=== PATIENT | female | born 1945 | race Caucasian/White ===

== ENCOUNTER 2017-01-20 01:01 | Emergency (ER) | payer OTHER ==
[~2017-01-20] VITALS: Ht 157.5 cm; Wt 63.5 kg
[~2017-01-20 01:01] MED LIST: CEPH-37 PO; COMIH INH; DIP25C PO; FENO134C PO; FENT75DI2 TD; FURO20TA PO; HYDR-3995 PO; POTA10SO11 PO; TIOTCAP INH
[2017-01-20 01:57] LABS: Basophils # (auto) 0.1 uL; Basophils % (auto) 0.5 % (0.0-2.0); CONDITION Y; Eosinophils # (auto) 0.1 uL; Eosinophils % (auto) 0.8 % (0.0-7.0); Hematocrit 38.5 % (36.0-46.0); Hemoglobin 12.7 g/dL (12.2-16.2); Lymphocytes % (auto) 14.1 % (10.0-50.0); Mean Corpuscular Hemoglobin 28.8 pg (28.0-32.0); Mean Corpuscular Hgb Conc. 32.9 g/dL (32.0-36.0); Mean Corpuscular Volume 87.4 fL (80.0-100.0); Mean Platelet Volume 8.2 fL (7.4-10.4); Monocytes # (auto) 0.4 uL; Monocytes % (auto) 2.9 % (0.0-12.0); Neutrophils # (auto) 11.7 uL; Neutrophils % (auto) 81.7 % (37.0-80.0); Platelet Count (auto) 353 10^3/uL (140-450); Red Cell Distribution Width 14.8 % (11.6-16.0); White Blood Cell 14.3 10^3/uL (4.4-10.8)
[2017-01-20 02:18] LABS: Albumin 3.3 g/dL (3.4-5.0); BUN/Creatinine Ratio 12.5; Calcium 8.4 mg/dL (8.5-10.1); Potassium 3.4 mmol/L (3.5-5.1)
[2017-01-20 02:21] LABS: Bilirubin, Total 0.4 mg/dL (0.2-1.0); Total Protein 7.1 g/dL (6.4-8.2)
[2017-01-20 03:21] LABS: Temperature: 21.6 C (20.0-25.0)
[2017-01-20] MEDS ORDERED: cefTRIAXone W LIDOCAINE 1 GM IM IM ONE (08:30)
[2017-01-20 10:43] VITALS: BP 108/50
== END 2017-01-20 11:22 | disposition home or self-care (01) ==
LOC: ER 01:01
DX: L98.419 Non-pressure chronic ulcer of buttock with unspecified severity (principal); Z48.01 Encounter for change or removal of surgical wound dressing; I12.9 Hypertensive chronic kidney disease with stage 1 through stage 4 chronic kidney disease, or unspecified chronic kidney disease; N18.9 Chronic kidney disease, unspecified; E03.9 Hypothyroidism, unspecified; Z88.6 Allergy status to analgesic agent; Z88.8 Allergy status to other drugs, medicaments and biological substances
CPT/HCPCS: 36415; 80053; 83605; 83880; 85025; 87040; 96372; 99284; J0696

== ENCOUNTER 2017-12-09 08:51 | Inpatient (IN) | payer OTHER ==
[~2017-12-09] VITALS: Ht 162.6 cm; Wt 67.4 kg
[2017-12-09] MEDS ORDERED: SODIUM CHLORIDE 0.9% 1,000 ML IV ONE ×2 (08:57→13:15)
[2017-12-09 09:39] LABS: Urine Bacteria NONE SEEN /hpf (None Seen); Urine Blood 2+ /uL (Negative); Urine Mucus FEW (None Seen); Urine Specific Gravity 1.016 (1.001-1.035); Urine WBC 1198 /hpf (0 - 5); Urine WBC Clumps PRESENT /hpf (None Seen)
[2017-12-09 09:54] LABS: Basophils # (auto) 0 uL; Basophils % (auto) 0.2 % (0.0-2.0); Eosinophils # (auto) 0 uL; Hematocrit 33.4 % (36.0-46.0); Hemoglobin 10.7 g/dL (12.2-16.2); Lymphocytes # (auto) 0.7 uL; Lymphocytes % (auto) 3.2 % (10.0-50.0); Mean Corpuscular Hemoglobin 28.9 pg (28.0-32.0); Mean Corpuscular Hgb Conc. 32.2 g/dL (32.0-36.0); Mean Corpuscular Volume 89.9 fL (80.0-100.0); Monocytes # (auto) 0.9 uL; Neutrophils # (auto) 20.6 uL; Neutrophils % (auto) 92.6 % (37.0-80.0); Platelet Count (auto) 292 10^3/uL (140-450); Red Blood Cells 3.72 10^6/uL (4.0-5.20); Red Cell Distribution Width 13.7 % (11.8-14.3); White Blood Cell 22.3 10^3/uL (4.4-10.8)
[2017-12-09 10:19] LABS: Lactic Acid w/Reflex 4.6 mmol/L (0.4-2.0)
[2017-12-09 10:30] LABS: Albumin 2.3 g/dL (3.4-5.0); BUN/Creatinine Ratio 8.3; Bilirubin, Total 0.6 mg/dL (0.2-1.0); Calcium 8.2 mg/dL (8.5-10.1); Total Protein 5.9 g/dL (6.4-8.2)
[2017-12-09] MEDS ORDERED: VANCOMYCIN 1GM/250ML 250 ML IV ONE (11:00)
[2017-12-09] MEDS ORDERED: cefTRIAXone 1GM/10ml IVPUSH 10 ML IV ONE (11:00)
[2017-12-09] MEDS ORDERED: ONDANSETRON HCL 4 MG/2 ML VIAL ONE (12:59)
[2017-12-09] MEDS ORDERED: methylPREDNISolone SOD SUCC 125 MG/2 ML VL IM ONE (13:15)
[2017-12-09] MEDS ORDERED: VANCOMYCIN PER PHARMACY 0 MG IV SCH (13:15)
[2017-12-09] MEDS ORDERED: LEVOTHYROXINE SODIUM 25 MCG TAB PO ONE (13:15)
[2017-12-09] MEDS ORDERED: NITROGLYCERIN 0.4 MG SL TAB SL PRN (13:30)
[2017-12-09] MEDS ORDERED: TEMAZEPAM 15 MG CAP PO PRN (13:30)
[2017-12-09] MEDS ORDERED: POTASSIUM CHL 10 Meq TABLET PO ONE (13:30)
[2017-12-09] MEDS ORDERED: LORazepam 2MG/ML-1ML VIAL ONE (13:53)
[2017-12-09] MEDS ORDERED: ONDANSETRON HCL 4 MG/2 ML VIAL IV ONE (14:30)
[2017-12-09] MEDS ORDERED: LORazepam 2MG/ML-1ML VIAL IV ONE (14:30)
[2017-12-09] MEDS: SODIUM CHLORIDE 0.9% 1,000 ML IV SCH ×2 (15:56→21:56)
[2017-12-09] MEDS: fentaNYL 100MCG/HR 100 MCG/HR PAT TD SCH (15:58)
[2017-12-09 16:01] LABS: Lactic Acid w/Reflex 2.5 mmol/L (0.4-2.0)
[2017-12-09] MEDS ORDERED: NOREPINEPHRINE 8 MG/250ML KIT 250 ML IV ONE (16:46)
[2017-12-09] MEDS: NOREPINEPHRINE 8 MG/250ML KIT 250 ML IV SCH (17:00)
[2017-12-09] MEDS: methylPREDNISolone SOD SUCC 40 MG/ML VL IV SCH (18:59)
[2017-12-09] MEDS: BOOST PLUS 8 ounce PO SCH (19:40)
[2017-12-09] MEDS: ONDANSETRON HCL 4 MG/2 ML VIAL IV PRN (19:56)
[2017-12-09 21:34] LABS: BUN/Creatinine Ratio 9.3; Calcium 7.3 mg/dL (8.5-10.1); Potassium 3.1 mmol/L (3.5-5.1)
[2017-12-09] MEDS: FAMOTIDINE 20 MG TAB PO SCH (22:04)
[2017-12-09] MEDS: ASCORBIC ACID 500 MG TAB PO SCH (22:04)
[2017-12-10] MEDS: ONDANSETRON HCL 4 MG/2 ML VIAL IV PRN (01:07)
[2017-12-10] MEDS: methylPREDNISolone SOD SUCC 40 MG/ML VL IV SCH ×2 (01:07→07:38)
[2017-12-10] MEDS ORDERED: TEMAZEPAM 15 MG CAP ONE (01:18)
[2017-12-10] MEDS: NOREPINEPHRINE 8 MG/250ML KIT 250 ML IV SCH ×3 (02:45→03:51)
[2017-12-10] MEDS ORDERED: ALBUMIN 5% 250 ML IV ONE (05:45)
[2017-12-10] MEDS: SODIUM CHLORIDE 0.9% 1,000 ML IV SCH ×3 (06:18→22:26)
[2017-12-10 06:50] LABS: Hematocrit 29.9 % (36.0-46.0); Hemoglobin 9.7 g/dL (12.2-16.2); Mean Corpuscular Hgb Conc. 32.5 g/dL (32.0-36.0); Red Cell Distribution Width 14.2 % (11.8-14.3)
[2017-12-10 06:52] LABS: Mean Corpuscular Hemoglobin 29.1 pg (28.0-32.0); Mean Corpuscular Volume 89.5 fL (80.0-100.0); Platelet Count (auto) 270 10^3/uL (140-450); Red Blood Cells 3.34 10^6/uL (4.0-5.20)
[2017-12-10 07:05] LABS: Albumin 1.9 g/dL (3.4-5.0); Calcium 7.2 mg/dL (8.5-10.1)
[2017-12-10 07:12] LABS: White Blood Cell 40.6 10^3/uL (4.4-10.8)
[2017-12-10 07:13] LABS: Band Neutrophils % (manual) 0; Basophils % (manual) 0 (0.0-2.0); Blast Cells 0; Eosinophils % (manual) 0 (0-7); Metamyelocytes % 0; Myelocytes % 0; Promyelocytes % 0; Reactive Lymphocytes 0
[2017-12-10 07:22] LABS: Bilirubin, Total 0.4 mg/dL (0.2-1.0); Total Protein 5.3 g/dL (6.4-8.2)
[2017-12-10] MEDS: LEVOTHYROXINE SODIUM 25 MCG TAB PO SCH (07:45)
[2017-12-10] MEDS: BOOST PLUS 8 ounce PO SCH ×3 (08:11→18:36)
[2017-12-10 08:15] LABS: Lymphocytes % (manual) 2 (10.0-50.0); Monocytes % (manual) 3 (0-12)
[2017-12-10] MEDS ORDERED: cefTRIAXone 1GM/10ml IVPUSH 10 ML IV SCH (09:00)
[2017-12-10] MEDS ORDERED: ZINC SULFATE 220 MG CAP PO SCH (10:00)
[2017-12-10] MEDS: ASCORBIC ACID 500 MG TAB PO SCH ×2 (10:44→22:00)
[2017-12-10] MEDS: CHOLECALCIFEROL (VITD3) 1,000 UNIT TAB PO SCH (10:44)
[2017-12-10] MEDS: FAMOTIDINE 20 MG TAB PO SCH (10:44)
[2017-12-10] MEDS: MULTIPLE VITAMIN TAB PO SCH (10:44)
[2017-12-10] MEDS: HYDROcodone-ACET 10/325MG TAB PO PRN (10:45)
[2017-12-10] MEDS ORDERED: VANCOMYCIN 1GM/250ML 250 ML IV SCH (12:00)
[2017-12-10] MEDS ORDERED: fentaNYL 100MCG/HR 100 MCG/HR PAT TD SCH (12:00)
[2017-12-10] MEDS: PIPERACILLIN-TAZOB 3.375GM 100 ML IV SCH ×2 (12:21→18:36)
[2017-12-10] MEDS ORDERED: POTASSIUM CHL 20MEQ/100ML 100 ML IV ONE (12:30)
[2017-12-10 19:31] LABS: INR 1.35 (0.9-1.15); Prothrombin Time 14.2 sec (9.27-12.13)
[2017-12-10 19:32] LABS: Hematocrit 26.8 % (36.0-46.0); Hemoglobin 8.6 g/dL (12.2-16.2); Mean Corpuscular Hemoglobin 29.2 pg (28.0-32.0); Mean Corpuscular Hgb Conc. 32.1 g/dL (32.0-36.0); Mean Corpuscular Volume 90.8 fL (80.0-100.0); Platelet Count (auto) 194 10^3/uL (140-450); Red Blood Cells 2.95 10^6/uL (4.0-5.20); Red Cell Distribution Width 14.7 % (11.8-14.3); White Blood Cell 20.4 10^3/uL (4.4-10.8)
[2017-12-10 19:38] LABS: Albumin 1.9 g/dL (3.4-5.0); BUN/Creatinine Ratio 19.1; Bilirubin, Direct 0.2 mg/dL (0-0.2); Bilirubin, Total 0.2 mg/dL (0.2-1.0); Calcium 6.9 mg/dL (8.5-10.1); Magnesium 1.7 mg/dL (1.6-2.6); Potassium 3.4 mmol/L (3.5-5.1); Total Protein 4.9 g/dL (6.4-8.2)
[2017-12-10 19:52] LABS: Basophils % (manual) 0 (0.0-2.0); Blast Cells 0; Eosinophils % (manual) 0 (0-7); Metamyelocytes % 0; Myelocytes % 0; Promyelocytes % 0; Reactive Lymphocytes 0
[2017-12-10 21:13] LABS: Band Neutrophils % (manual) 6; Lymphocytes % (manual) 2 (10.0-50.0); Monocytes % (manual) 2 (0-12)
[2017-12-10] MEDS: PANTOPRAZOLE 40 MG/10 ML VIAL IV SCH (22:00)
[2017-12-11] VITALS (13 sets, daily range): BP systolic 101–135; BP diastolic 39–74
[2017-12-11] MEDS: PIPERACILLIN-TAZOB 3.375GM 100 ML IV SCH ×2 (00:10→05:51)
[2017-12-11] MEDS: HYDROcodone-ACET 10/325MG TAB PO PRN ×2 (04:34→23:32)
[2017-12-11] MEDS: ACETAMINOPHEN 325 MG TAB PO PRN ×2 (04:53→20:30)
[2017-12-11] MEDS: ONDANSETRON HCL 4 MG/2 ML VIAL IV PRN ×2 (04:59→20:30)
[2017-12-11 05:27] LABS: Basophils # (auto) 0 uL; Basophils % (auto) 0.1 % (0.0-2.0); Eosinophils # (auto) 0.3 uL; Hematocrit 27.9 % (36.0-46.0); Hemoglobin 9.3 g/dL (12.2-16.2); Lymphocytes # (auto) 0.4 uL; Lymphocytes % (auto) 2.3 % (10.0-50.0); Mean Corpuscular Hemoglobin 29.9 pg (28.0-32.0); Mean Corpuscular Hgb Conc. 33.3 g/dL (32.0-36.0); Mean Corpuscular Volume 89.8 fL (80.0-100.0); Monocytes # (auto) 0.3 uL; Monocytes % (auto) 1.8 % (0.0-12.0); Neutrophils # (auto) 15.7 uL; Neutrophils % (auto) 93.8 % (37.0-80.0); Platelet Count (auto) 173 10^3/uL (140-450); Red Blood Cells 3.11 10^6/uL (4.0-5.20); Red Cell Distribution Width 14.4 % (11.8-14.3); White Blood Cell 16.7 10^3/uL (4.4-10.8)
[2017-12-11 05:42] LABS: INR 1.24 (0.9-1.15); Partial Thromboplastin Time 36.3 sec (23.78-33.04); Prothrombin Time 13.1 sec (9.27-12.13)
[2017-12-11 05:51] LABS: Albumin 1.9 g/dL (3.4-5.0); BUN/Creatinine Ratio 19.8; Bilirubin, Direct 0.2 mg/dL (0-0.2); Bilirubin, Total 0.3 mg/dL (0.2-1.0); Calcium 7.2 mg/dL (8.5-10.1); Magnesium 1.8 mg/dL (1.6-2.6); Total Protein 5.2 g/dL (6.4-8.2)
[2017-12-11] MEDS: SODIUM CHLORIDE 0.9% 1,000 ML IV SCH ×3 (05:52→20:30)
[2017-12-11] MEDS: POTASSIUM CHL 20MEQ/100ML 100 ML IV SCH ×2 (06:44→08:32)
[2017-12-11] MEDS: LEVOTHYROXINE SODIUM 25 MCG TAB PO SCH (06:45)
[2017-12-11] MEDS: BOOST PLUS 8 ounce PO SCH ×3 (07:25→18:49)
[2017-12-11] MEDS: PANTOPRAZOLE 40 MG/10 ML VIAL IV SCH ×2 (10:53→22:04)
[2017-12-11] MEDS: MULTIPLE VITAMIN TAB PO SCH (10:56)
[2017-12-11] MEDS: ASCORBIC ACID 500 MG TAB PO SCH ×2 (10:56→22:04)
[2017-12-11] MEDS: CHOLECALCIFEROL (VITD3) 1,000 UNIT TAB PO SCH (10:57)
[2017-12-11] MEDS ORDERED: cefTRIAXone 1GM/10ml IVPUSH 10 ML IV ONE (11:00)
[2017-12-11] MEDS ORDERED: SODIUM CHLORIDE 0.9% 1,000 ML IV ONE (11:00)
[2017-12-11] MEDS: NOREPINEPHRINE 8 MG/250ML KIT 250 ML IV SCH (11:59)
[2017-12-11] MEDS: PHENYLEPHRINE INJ 20 MG in D5W 5% 250 ML IV SCH (19:30)
[2017-12-11] MEDS ORDERED: MAGNESIUM SULFATE 1GM/100ML 100 ML IV ONE (20:15)
[2017-12-11 21:59] LABS: Basophils # (auto) 0 uL; Basophils % (auto) 0.6 % (0.0-2.0); Eosinophils # (auto) 0 uL; Eosinophils % (auto) 0.5 % (0.0-7.0); Hematocrit 26.1 % (36.0-46.0); Hemoglobin 8.6 g/dL (12.2-16.2); Lymphocytes # (auto) 0.2 uL; Lymphocytes % (auto) 3.4 % (10.0-50.0); Mean Corpuscular Hgb Conc. 33.1 g/dL (32.0-36.0); Mean Corpuscular Volume 90.8 fL (80.0-100.0); Monocytes # (auto) 0.3 uL; Monocytes % (auto) 4.1 % (0.0-12.0); Neutrophils # (auto) 6.2 uL; Neutrophils % (auto) 91.4 % (37.0-80.0); Nucleated Red Blood Cells % 0.1 %; Platelet Count (auto) 129 10^3/uL (140-450); Red Blood Cells 2.88 10^6/uL (4.0-5.20); White Blood Cell 6.8 10^3/uL (4.4-10.8)
[2017-12-11 22:19] LABS: Calcium 7.2 mg/dL (8.5-10.1); Potassium 3.3 mmol/L (3.5-5.1)
[2017-12-11 22:29] LABS: Free T3 1.72 pg/mL (2.3-4.2)
[2017-12-12] VITALS (71 sets, daily range): BP systolic 84–144; BP diastolic 38–92
[2017-12-12] MEDS: SODIUM CHLORIDE 0.9% 1,000 ML IV SCH ×2 (02:30→21:49)
[2017-12-12] MEDS: PHENYLEPHRINE INJ 20 MG in D5W 5% 250 ML IV SCH ×3 (03:05→19:45)
[2017-12-12 03:48] LABS: Basophils # (auto) 0 uL; Basophils % (auto) 0.2 % (0.0-2.0); Eosinophils # (auto) 0.1 uL; Eosinophils % (auto) 0.8 % (0.0-7.0); Hematocrit 27.5 % (36.0-46.0); Hemoglobin 9.1 g/dL (12.2-16.2); Lymphocytes # (auto) 0.5 uL; Lymphocytes % (auto) 5.4 % (10.0-50.0); Mean Corpuscular Hemoglobin 29.8 pg (28.0-32.0); Mean Corpuscular Hgb Conc. 32.9 g/dL (32.0-36.0); Mean Corpuscular Volume 90.5 fL (80.0-100.0); Monocytes # (auto) 0.5 uL; Monocytes % (auto) 4.6 % (0.0-12.0); Neutrophils # (auto) 8.8 uL; Platelet Count (auto) 163 10^3/uL (140-450); Red Blood Cells 3.04 10^6/uL (4.0-5.20); Red Cell Distribution Width 14.7 % (11.8-14.3); White Blood Cell 9.9 10^3/uL (4.4-10.8)
[2017-12-12 04:05] LABS: INR 1.09 (0.9-1.15); Partial Thromboplastin Time 31.3 sec (23.78-33.04); Prothrombin Time 11.6 sec (9.27-12.13)
[2017-12-12 04:46] LABS: Albumin 1.7 g/dL (3.4-5.0); BUN/Creatinine Ratio 12.3; Calcium 7.1 mg/dL (8.5-10.1); Magnesium 1.9 mg/dL (1.6-2.6); Potassium 3.4 mmol/L (3.5-5.1)
[2017-12-12 04:49] LABS: Bilirubin, Total 0.5 mg/dL (0.2-1.0); Total Protein 4.9 g/dL (6.4-8.2)
[2017-12-12 06:28] LABS: Bilirubin, Direct 0.2 mg/dL (0-0.2)
[2017-12-12] MEDS: LEVOTHYROXINE SODIUM 25 MCG TAB PO SCH (06:36)
[2017-12-12] MEDS: DOCUSATE SOD 100 MG CAP PO PRN (06:37)
[2017-12-12] MEDS: ONDANSETRON HCL 4 MG/2 ML VIAL IV PRN ×3 (06:37→23:33)
[2017-12-12] MEDS: BOOST PLUS 8 ounce PO SCH ×3 (08:00→18:00)
[2017-12-12] MEDS ORDERED: LIDOCAINE 2%HCL (LOCAL ANESTH.) INJ 20ML MDV ONE ×2 (08:21→15:19)
[2017-12-12] MEDS ORDERED: IODIXANOL 320MG/ML 100ML BTL IV ONE (08:21)
[2017-12-12] MEDS: cefTRIAXone 1GM/10ml IVPUSH 10 ML IV SCH (09:18)
[2017-12-12] MEDS: MULTIPLE VITAMIN TAB PO SCH (10:00)
[2017-12-12] MEDS: ASCORBIC ACID 500 MG TAB PO SCH ×2 (10:00→21:51)
[2017-12-12] MEDS: CHOLECALCIFEROL (VITD3) 1,000 UNIT TAB PO SCH (10:00)
[2017-12-12] MEDS: PANTOPRAZOLE 40 MG/10 ML VIAL IV SCH ×2 (10:45→21:51)
[2017-12-12] MEDS ORDERED: MIDAZOLAM HCL 1MG/1ML-2 ML VIAL ONE (15:01)
[2017-12-12] MEDS ORDERED: fentaNYL CITRATE 100 MCG/2 ML VL ONE (15:01)
[2017-12-12] MEDS ORDERED: IOHEXOL 300 MG/ML 100ML BOTTLE IJ ONE (15:19)
[2017-12-12] MEDS ORDERED: GELATIN 1 SPONGE SIZE 50 TOP ONE (15:55)
[2017-12-12] MEDS: fentaNYL 100MCG/HR 100 MCG/HR PAT TD SCH (18:00)
[2017-12-12] MEDS ORDERED: POTASSIUM CHL 20MEQ/100ML 100 ML IV ONE (18:15)
[2017-12-12] MEDS: HYDROcodone-ACET 10/325MG TAB PO PRN (19:57)
[2017-12-13] VITALS (29 sets, daily range): BP systolic 103–153; BP diastolic 50–98
[2017-12-13] MEDS: SODIUM CHLORIDE 0.9% 1,000 ML IV SCH ×4 (02:15→21:51)
[2017-12-13 06:34] LABS: Basophils # (auto) 0 uL; Basophils % (auto) 0.1 % (0.0-2.0); Eosinophils # (auto) 0 uL; Eosinophils % (auto) 0.3 % (0.0-7.0); Hematocrit 27.9 % (36.0-46.0); Hemoglobin 9.2 g/dL (12.2-16.2); Lymphocytes # (auto) 0.4 uL; Lymphocytes % (auto) 5.3 % (10.0-50.0); Mean Corpuscular Hemoglobin 29.9 pg (28.0-32.0); Mean Corpuscular Volume 90.4 fL (80.0-100.0); Monocytes # (auto) 0.5 uL; Monocytes % (auto) 6.2 % (0.0-12.0); Neutrophils # (auto) 6.5 uL; Neutrophils % (auto) 88.1 % (37.0-80.0); Platelet Count (auto) 125 10^3/uL (140-450); Red Blood Cells 3.08 10^6/uL (4.0-5.20); Red Cell Distribution Width 15.1 % (11.8-14.3); White Blood Cell 7.4 10^3/uL (4.4-10.8)
[2017-12-13] MEDS: LEVOTHYROXINE SODIUM 25 MCG TAB PO SCH (06:45)
[2017-12-13 06:49] LABS: BUN/Creatinine Ratio 10.9; Calcium 7.3 mg/dL (8.5-10.1); Potassium 3.7 mmol/L (3.5-5.1)
[2017-12-13] MEDS: BOOST PLUS 8 ounce PO SCH ×3 (08:00→18:21)
[2017-12-13] MEDS: MULTIPLE VITAMIN TAB PO SCH (09:42)
[2017-12-13] MEDS: PANTOPRAZOLE 40 MG/10 ML VIAL IV SCH ×2 (09:42→21:50)
[2017-12-13] MEDS: cefTRIAXone 1GM/10ml IVPUSH 10 ML IV SCH (09:42)
[2017-12-13] MEDS: CHOLECALCIFEROL (VITD3) 1,000 UNIT TAB PO SCH (09:43)
[2017-12-13] MEDS: ASCORBIC ACID 500 MG TAB PO SCH ×2 (09:43→21:50)
[2017-12-13] MEDS: HYDROcodone-ACET 10/325MG TAB PO PRN ×2 (09:51→17:41)
[2017-12-13] MEDS ORDERED: BACL10TA PO (16:10)
[2017-12-13] MEDS ORDERED: FURO20TA3 PO (16:10)
[2017-12-13] MEDS ORDERED: PRE1T PO (16:10)
[2017-12-13] MEDS ORDERED: IBUP800T24 PO (16:10)
[2017-12-13] MEDS ORDERED: CHOL1CAP PO (16:10)
[2017-12-13] MEDS ORDERED: POTA10TA75 PO (16:10)
[2017-12-13] MEDS ORDERED: LEVO25TA6 PO (16:10)
[2017-12-13] MEDS ORDERED: CRAN125T PO (16:10)
[2017-12-13] MEDS ORDERED: DOCU-94 PO (16:10)
[2017-12-13] MEDS ORDERED: OXYM0.0511 NAS (16:10)
[2017-12-13] MEDS ORDERED: VITA400T4 PO (16:10)
[2017-12-13] MEDS ORDERED: GLUC-163 PO (16:10)
[2017-12-13] MEDS: DOCUSATE SOD 100 MG CAP PO PRN (21:50)
[2017-12-14 05:00] VITALS: BP 133/68
[2017-12-14] MEDS: LEVOTHYROXINE SODIUM 25 MCG TAB PO SCH (06:33)
[2017-12-14 06:43] LABS: Basophils # (auto) 0 uL; Basophils % (auto) 0.3 % (0.0-2.0); Eosinophils # (auto) 0.2 uL; Eosinophils % (auto) 2.6 % (0.0-7.0); Hematocrit 26.8 % (36.0-46.0); Hemoglobin 9.1 g/dL (12.2-16.2); Lymphocytes # (auto) 0.7 uL; Lymphocytes % (auto) 9.7 % (10.0-50.0); Mean Corpuscular Hemoglobin 30.3 pg (28.0-32.0); Mean Corpuscular Hgb Conc. 34.1 g/dL (32.0-36.0); Mean Corpuscular Volume 88.9 fL (80.0-100.0); Monocytes # (auto) 0.6 uL; Monocytes % (auto) 8.4 % (0.0-12.0); Neutrophils # (auto) 5.8 uL; Platelet Count (auto) 162 10^3/uL (140-450); Red Blood Cells 3.02 10^6/uL (4.0-5.20); Red Cell Distribution Width 15.2 % (11.8-14.3); White Blood Cell 7.4 10^3/uL (4.4-10.8)
[2017-12-14 07:00] LABS: BUN/Creatinine Ratio 10.7; Calcium 7.6 mg/dL (8.5-10.1); Potassium 3.1 mmol/L (3.5-5.1)
[2017-12-14 08:00] VITALS: BP 141/69
[2017-12-14] MEDS: BOOST PLUS 8 ounce PO SCH ×3 (08:00→18:34)
[2017-12-14] MEDS: SODIUM CHLORIDE 0.9% 1,000 ML IV SCH ×2 (10:01→18:15)
[2017-12-14] MEDS: cefTRIAXone 1GM/10ml IVPUSH 10 ML IV SCH (10:02)
[2017-12-14] MEDS: ASCORBIC ACID 500 MG TAB PO SCH ×2 (10:02→21:40)
[2017-12-14] MEDS: PANTOPRAZOLE 40 MG/10 ML VIAL IV SCH ×2 (10:02→21:40)
[2017-12-14] MEDS: CHOLECALCIFEROL (VITD3) 1,000 UNIT TAB PO SCH (10:02)
[2017-12-14] MEDS: MULTIPLE VITAMIN TAB PO SCH (10:02)
[2017-12-14] MEDS: HYDROcodone-ACET 10/325MG TAB PO PRN ×2 (10:40→18:34)
[2017-12-14 13:00] VITALS: BP 124/70
[2017-12-14] MEDS ORDERED: POTASSIUM CHL 20 Meq TABLET PO ONE (13:15)
[2017-12-14 17:10] VITALS: BP 125/69
[2017-12-14] MEDS: DOCUSATE SOD 100 MG CAP PO PRN (21:40)
[2017-12-14 22:00] VITALS: BP 121/81
[2017-12-15 05:00] VITALS: BP 156/76
[2017-12-15] MEDS: HYDROcodone-ACET 10/325MG TAB PO PRN ×3 (05:00→17:26)
[2017-12-15] MEDS: SODIUM CHLORIDE 0.9% 1,000 ML IV SCH ×2 (06:00→14:15)
[2017-12-15] MEDS: LEVOTHYROXINE SODIUM 25 MCG TAB PO SCH (06:00)
[2017-12-15 06:03] LABS: Basophils # (auto) 0 uL; Basophils % (auto) 0.8 % (0.0-2.0); Eosinophils # (auto) 0.2 uL; Eosinophils % (auto) 3.5 % (0.0-7.0); Hemoglobin 9.3 g/dL (12.2-16.2); Lymphocytes # (auto) 0.9 uL; Mean Corpuscular Hemoglobin 29.3 pg (28.0-32.0); Mean Corpuscular Hgb Conc. 33.1 g/dL (32.0-36.0); Mean Corpuscular Volume 88.5 fL (80.0-100.0); Monocytes # (auto) 0.6 uL; Monocytes % (auto) 10.1 % (0.0-12.0); Neutrophils # (auto) 4.1 uL; Neutrophils % (auto) 69.6 % (37.0-80.0); Nucleated Red Blood Cells % 0.1 %; Platelet Count (auto) 224 10^3/uL (140-450); Red Blood Cells 3.17 10^6/uL (4.0-5.20); Red Cell Distribution Width 14.8 % (11.8-14.3); White Blood Cell 5.9 10^3/uL (4.4-10.8)
[2017-12-15 06:09] LABS: BUN/Creatinine Ratio 7.7; Calcium 7.7 mg/dL (8.5-10.1); Magnesium 1.5 mg/dL (1.6-2.6); Potassium 3.2 mmol/L (3.5-5.1)
[2017-12-15 08:00] VITALS: BP 130/68
[2017-12-15] MEDS: BOOST PLUS 8 ounce PO SCH ×3 (08:00→18:00)
[2017-12-15] MEDS: ENOXAPARIN SOD 40 MG/0.4 ML SYRINGE SC SCH (11:28)
[2017-12-15] MEDS: CHOLECALCIFEROL (VITD3) 1,000 UNIT TAB PO SCH (11:28)
[2017-12-15] MEDS: ASCORBIC ACID 500 MG TAB PO SCH ×2 (11:28→22:41)
[2017-12-15] MEDS: PANTOPRAZOLE 40 MG/10 ML VIAL IV SCH ×2 (11:28→22:41)
[2017-12-15] MEDS: fentaNYL 100MCG/HR 100 MCG/HR PAT TD SCH (11:28)
[2017-12-15] MEDS: MULTIPLE VITAMIN TAB PO SCH (11:28)
[2017-12-15] MEDS: cefTRIAXone 1GM/10ml IVPUSH 10 ML IV SCH (11:29)
[2017-12-15] MEDS ORDERED: MAGNESIUM OXIDE 400 MG TAB PO ONE (11:45)
[2017-12-15] MEDS ORDERED: POTASSIUM CHL 20 Meq TABLET PO ONE (11:45)
[2017-12-15] MEDS: MAGNESIUM SULFATE 1GM/100ML 100 ML IV SCH ×3 (12:06→20:08)
[2017-12-15 12:55] VITALS: BP 150/78
[2017-12-15] MEDS ORDERED: LEVOFLOXACIN 500 MG TAB PO ONE (14:15)
[2017-12-15 17:00] VITALS: BP 140/80
[2017-12-15] MEDS ORDERED: MAGNESIUM SULFATE 1GM/100ML 100 ML IV ONE (20:03)
[2017-12-15 22:00] VITALS: BP 139/93
[2017-12-16] MEDS: HYDROcodone-ACET 10/325MG TAB PO PRN ×2 (00:20→12:58)
[2017-12-16] MEDS: SODIUM CHLORIDE 0.9% 1,000 ML IV SCH (00:48)
[2017-12-16 01:04] LABS: Urine Bacteria NONE SEEN /hpf (None Seen); Urine Blood 3+ /uL (Negative); Urine Specific Gravity 1.004 (1.001-1.035); Urine WBC 4 /hpf (0 - 5)
[2017-12-16 05:00] VITALS: BP 150/67
[2017-12-16] MEDS: LEVOTHYROXINE SODIUM 25 MCG TAB PO SCH (06:53)
[2017-12-16 08:00] VITALS: BP 146/65
[2017-12-16] MEDS: BOOST PLUS 8 ounce PO SCH ×2 (08:00→12:00)
[2017-12-16 08:20] LABS: Basophils # (auto) 0 uL; Basophils % (auto) 0.6 % (0.0-2.0); Eosinophils # (auto) 0.3 uL; Eosinophils % (auto) 4.7 % (0.0-7.0); Hematocrit 27.8 % (36.0-46.0); Hemoglobin 9.1 g/dL (12.2-16.2); Lymphocytes % (auto) 15.9 % (10.0-50.0); Mean Corpuscular Hemoglobin 28.7 pg (28.0-32.0); Mean Corpuscular Hgb Conc. 32.9 g/dL (32.0-36.0); Mean Corpuscular Volume 87.3 fL (80.0-100.0); Monocytes # (auto) 0.5 uL; Monocytes % (auto) 8.7 % (0.0-12.0); Neutrophils # (auto) 4.3 uL; Neutrophils % (auto) 70.1 % (37.0-80.0); Platelet Count (auto) 276 10^3/uL (140-450); Red Blood Cells 3.18 10^6/uL (4.0-5.20); Red Cell Distribution Width 14.5 % (11.8-14.3); White Blood Cell 6.2 10^3/uL (4.4-10.8)
[2017-12-16 09:00] VITALS: BP 140/72
[2017-12-16] MEDS: cefTRIAXone 1GM/10ml IVPUSH 10 ML IV SCH (10:46)
[2017-12-16] MEDS: PANTOPRAZOLE 40 MG/10 ML VIAL IV SCH (10:46)
[2017-12-16] MEDS: ENOXAPARIN SOD 40 MG/0.4 ML SYRINGE SC SCH (10:46)
[2017-12-16] MEDS: ASCORBIC ACID 500 MG TAB PO SCH (10:47)
[2017-12-16] MEDS: CHOLECALCIFEROL (VITD3) 1,000 UNIT TAB PO SCH (10:47)
[2017-12-16] MEDS: MULTIPLE VITAMIN TAB PO SCH (10:47)
[2017-12-16 12:56] VITALS: BP 146/65
== END 2017-12-16 15:00 | disposition home health service (06) | DRG 871 ==
LOC: ER 08:51 → EDBD 08:51 → TELE 08:52 → ICU WEST 12-11 20:30 → DOU IN ICU 12-12 13:49 → TELE-WESTW 12-13 13:00
PROVIDERS: ADMIT Internal Medicine; ATTEND Internal Medicine
PROC: 02HV33Z Insertion of Infusion Device into Superior Vena Cava, Percutaneous Approach (ICD-10-PCS; principal; 2017-12-09)
PROC: 0T9130Z Drainage of Left Kidney with Drainage Device, Percutaneous Approach (ICD-10-PCS; 2017-12-12)
PROC: BT121ZZ Fluoroscopy of Left Kidney using Low Osmolar Contrast (ICD-10-PCS; 2017-12-12)
DX: A41.9 Sepsis, unspecified organism (principal); R65.21 Severe sepsis with septic shock; E44.0 Moderate protein-calorie malnutrition; N17.9 Acute kidney failure, unspecified; K92.0 Hematemesis; N13.6 Pyonephrosis; D63.8 Anemia in other chronic diseases classified elsewhere; N18.3 Chronic kidney disease, stage 3 (moderate); M19.90 Unspecified osteoarthritis, unspecified site; E03.9 Hypothyroidism, unspecified; E83.51 Hypocalcemia; E87.6 Hypokalemia; F41.9 Anxiety disorder, unspecified; B96.20 Unspecified Escherichia coli [E. coli] as the cause of diseases classified elsewhere; E78.5 Hyperlipidemia, unspecified; G89.4 Chronic pain syndrome; J44.9 Chronic obstructive pulmonary disease, unspecified; K44.9 Diaphragmatic hernia without obstruction or gangrene; M06.9 Rheumatoid arthritis, unspecified; M50.30 Other cervical disc degeneration, unspecified cervical region; R74.8 Abnormal levels of other serum enzymes; M81.0 Age-related osteoporosis without current pathological fracture; I70.8 Atherosclerosis of other arteries; Z74.01 Bed confinement status; Z79.1 Long term (current) use of non-steroidal anti-inflammatories (NSAID); Z87.11 Personal history of peptic ulcer disease; Z88.5 Allergy status to narcotic agent; Z88.1 Allergy status to other antibiotic agents; Z88.8 Allergy status to other drugs, medicaments and biological substances; Z88.6 Allergy status to analgesic agent; Z79.899 Other long term (current) drug therapy; Z80.8 Family history of malignant neoplasm of other organs or systems; Z82.49 Family history of ischemic heart disease and other diseases of the circulatory system; Z81.1 Family history of alcohol abuse and dependence; Z68.25 Body mass index [BMI] 25.0-25.9, adult; R31.9 Hematuria, unspecified
CPT/HCPCS: 10022; 36415; 36556; 36600; 71045; 74176; 76942; 77012; 80048; 80053; 80076; 80202; 81001; 82805; 82962; 83605; 83735; 83880; 84439; 84443; 84481; 84484; 85007; 85025; 85027; 85610; 85730; 87040; 87077; 87081; 87086; 87088; 87186; 93005; 93306; 96361; 96365; 96375; 97110; 97163; 97530; 99291; C1729; C9113; J2250; J2405; J2543; J3480; J7060; Q9967

== ENCOUNTER 2018-03-13 10:44 | Emergency (ER) | payer OTHER ==
[~2018-03-13] VITALS: Ht 157.5 cm; Wt 72.6 kg
[~2018-03-13 10:44] MED LIST changes: +BACL10TA PO; +CHOL1CAP PO; +CRAN125T PO; +DOCU-94 PO; +GLUC-163 PO; +LEVO25TA6 PO; +OXYM0.0511 NAS; -POTA10SO11 PO; +POTA10TA75 PO; +PRE1T PO; +VITA400T4 PO
[2018-03-13 11:00] VITALS: BP 132/82
[2018-03-13] MEDS ORDERED: HYDROcodone-ACET 10/325MG TAB PO ONE (11:30)
[2018-03-13 11:52] LABS: Basophils # (auto) 0.1 uL; Basophils % (auto) 1.6 % (0.0-2.0); Eosinophils # (auto) 0.2 uL; Eosinophils % (auto) 2.7 % (0.0-7.0); Hematocrit 33.2 % (36.0-46.0); Hemoglobin 11.1 g/dL (12.2-16.2); Lymphocytes # (auto) 2.1 uL; Lymphocytes % (auto) 33.6 % (10.0-50.0); Mean Corpuscular Hemoglobin 29.9 pg (28.0-32.0); Mean Corpuscular Hgb Conc. 33.3 g/dL (32.0-36.0); Mean Corpuscular Volume 89.8 fL (80.0-100.0); Monocytes # (auto) 0.6 uL; Monocytes % (auto) 10.1 % (0.0-12.0); Neutrophils # (auto) 3.2 uL; Nucleated Red Blood Cells % 0.1 %; Platelet Count (auto) 282 10^3/uL (140-450); Red Cell Distribution Width 14.4 % (11.8-14.3); White Blood Cell 6.2 10^3/uL (4.4-10.8)
[2018-03-13 12:17] LABS: BUN/Creatinine Ratio 17.6; Bilirubin, Total 0.4 mg/dL (0.2-1.0); Calcium 8.8 mg/dL (8.5-10.1); Potassium 3.7 mmol/L (3.5-5.1); Total Protein 6.3 g/dL (6.4-8.2)
[2018-03-13 12:58] LABS: Urine Bacteria FEW /hpf (None Seen); Urine Blood Negative /uL (Negative); Urine Budding Yeast OCCASIONAL /hpf (None Seen); Urine Mucus FEW (None Seen); Urine Specific Gravity 1.004 (1.001-1.035); Urine WBC 36 /hpf (0 - 5)
[2018-03-13] MEDS ORDERED: cefTRIAXone SOD 1,000 MG VL IM ONE (13:15)
== END 2018-03-13 15:12 | disposition home or self-care (01) ==
LOC: ER 10:44 → EDBD 10:44 → ER 15:12
DX: S33.5XXA Sprain of ligaments of lumbar spine, initial encounter (principal); N18.9 Chronic kidney disease, unspecified; M19.90 Unspecified osteoarthritis, unspecified site; Z87.442 Personal history of urinary calculi; Z88.6 Allergy status to analgesic agent; Z93.6 Other artificial openings of urinary tract status; X58.XXXA Exposure to other specified factors, initial encounter; Y93.89 Activity, other specified; Y92.89 Other specified places as the place of occurrence of the external cause; Y99.8 Other external cause status
CPT/HCPCS: 36415; 51702; 80053; 81001; 85025; 96372; 99284; J0696

== ENCOUNTER 2018-05-28 23:30 | Emergency (ER) | payer OTHER ==
[~2018-05-28] VITALS: Ht 157.5 cm; Wt 56.7 kg
[2018-05-29 00:30] VITALS: BP 108/50
== END 2018-05-29 01:31 | disposition home or self-care (01) ==
LOC: ER 23:33
DX: N99.522 Malfunction of incontinent external stoma of urinary tract (principal); N18.9 Chronic kidney disease, unspecified; M19.90 Unspecified osteoarthritis, unspecified site; E07.9 Disorder of thyroid, unspecified; Z87.442 Personal history of urinary calculi; Z88.6 Allergy status to analgesic agent
CPT/HCPCS: 74176; 99284; A6257

== ENCOUNTER → 2018-08-06 | Day surgery (SDC) | payer OTHER ==
[~2018-08-06] MED LIST changes: +ACET500C26 PO; -BACL10TA PO; -CEPH-37 PO; +CIPROFLOXACIN 400MG/200ML 200 ML IV ONE; -COMIH INH; -GLUC-163 PO; -HYDR-3995 PO; +HYDR200T36 PO; +HYDROCORTISONE SOD SUCC 100 MG/2ML INJ VIAL ONE; +HYDROmorphone HCL 2 MG/ML VL IV PRN; +IOHEXOL 300 MG/ML 100ML BOTTLE IJ ONE; +LEVO500T21 PO; +METOCLOPRAMIDE HCL 5MG/ml INJ 2ml VIAL IV ONE; +MIDAZOLAM HCL 1MG/1ML-2 ML VIAL ONE; +ONDANSETRON HCL 4 MG/2 ML VIAL ONE; -OXYM0.0511 NAS; +PROPOFOL 10 MG/ML 20 ML IV ONE; +SODIUM CHLORIDE LOCK 20 ML ONE; -TIOTCAP INH; +fentaNYL CITRATE 100 MCG/2 ML VL ONE
[2018-08-06 10:47] VITALS: BP 133/66
== END | disposition home or self-care (01) ==
LOC: SUR 07:27
PROVIDERS: ATTEND Urology
DX: N20.1 Calculus of ureter (principal); N20.0 Calculus of kidney; Z43.6 Encounter for attention to other artificial openings of urinary tract; I50.9 Heart failure, unspecified; J44.9 Chronic obstructive pulmonary disease, unspecified; G47.30 Sleep apnea, unspecified; F41.9 Anxiety disorder, unspecified; E03.9 Hypothyroidism, unspecified; N39.0 Urinary tract infection, site not specified; M06.9 Rheumatoid arthritis, unspecified; Z79.899 Other long term (current) drug therapy; Z79.2 Long term (current) use of antibiotics; Z88.6 Allergy status to analgesic agent; Z82.61 Family history of arthritis; Z81.1 Family history of alcohol abuse and dependence; Z82.49 Family history of ischemic heart disease and other diseases of the circulatory system; Z80.9 Family history of malignant neoplasm, unspecified
CPT/HCPCS: 50590; J0744; J1720; J2250; J2405; J2704; J3010; Q9967

== ENCOUNTER 2018-10-07 20:57 | Inpatient (IN) | payer OTHER | END 2018-10-09 16:53 | disposition home health service (06) | LOC: OVERFLOW 10-08 04:26 → WEST WING 10-08 06:32 → ER 20:57 | DX: N12 Tubulo-interstitial nephritis, not specified as acute or chronic (principal); J18.1 Lobar pneumonia, unspecified organism; I50.9 Heart failure, unspecified ==

== ENCOUNTER 2019-01-07 13:31 | Inpatient (IN) | payer OTHER ==
[2019-01-07] VITALS (13 sets, daily range): BP systolic 92–154; BP diastolic 48–92
[~2019-01-07] VITALS: Ht 157.5 cm; Wt 61.8 kg
[~2019-01-07 13:31] MED LIST changes: -CIPROFLOXACIN 400MG/200ML 200 ML IV ONE; -CRAN125T PO; -DIP25C PO; -HYDROCORTISONE SOD SUCC 100 MG/2ML INJ VIAL ONE; -HYDROmorphone HCL 2 MG/ML VL IV PRN; -IOHEXOL 300 MG/ML 100ML BOTTLE IJ ONE; -LEVO500T21 PO; -METOCLOPRAMIDE HCL 5MG/ml INJ 2ml VIAL IV ONE; -MIDAZOLAM HCL 1MG/1ML-2 ML VIAL ONE; -ONDANSETRON HCL 4 MG/2 ML VIAL ONE; -PRE1T PO; -PROPOFOL 10 MG/ML 20 ML IV ONE; -SODIUM CHLORIDE LOCK 20 ML ONE; -VITA400T4 PO; -fentaNYL CITRATE 100 MCG/2 ML VL ONE
[2019-01-07] MEDS ORDERED: SODIUM CHLORIDE 0.9% 1,000 ML IV ONE (14:05)
[2019-01-07] MEDS ORDERED: NOREPINEPHRINE 8 MG/250ML KIT 250 ML IV ONE (14:08)
[2019-01-07] MEDS ORDERED: PIPERACILLIN-TAZOB 3.375GM 100 ML IV ONE (14:15)
[2019-01-07] MEDS: NOREPINEPHRINE 8 MG/250ML KIT 250 ML IV SCH (14:21)
[2019-01-07] MEDS ORDERED: ACETAMINOPHEN 500 MG TAB PO ONE (14:45)
[2019-01-07 14:52] LABS: Basophils # (auto) 0 uL; Basophils % (auto) 0.2 % (0.0-2.0); Eosinophils # (auto) 0 uL; Hematocrit 31.2 % (36.0-46.0); Lymphocytes # (auto) 0.3 uL; Lymphocytes % (auto) 2.3 % (10.0-50.0); Mean Corpuscular Hemoglobin 28.4 pg (28.0-32.0); Mean Corpuscular Hgb Conc. 32.1 g/dL (32.0-36.0); Mean Corpuscular Volume 88.3 fL (80.0-100.0); Monocytes # (auto) 0.2 uL; Monocytes % (auto) 1.4 % (0.0-12.0); Neutrophils # (auto) 11.6 uL; Neutrophils % (auto) 96.1 % (37.0-80.0); Platelet Count (auto) 258 10^3/uL (140-450); Red Blood Cells 3.53 10^6/uL (4.0-5.20); Red Cell Distribution Width 16.1 % (11.8-14.3)
[2019-01-07 15:01] LABS: Albumin 2.8 g/dL (3.4-5.0); Calcium 8.3 mg/dL (8.5-10.1)
[2019-01-07 15:04] LABS: BUN/Creatinine Ratio 14.6; Bilirubin, Total 0.7 mg/dL (0.2-1.0)
[2019-01-07 15:35] LABS: Potassium 2.4 mmol/L (3.5-5.1)
[2019-01-07] MEDS ORDERED: IOHEXOL 300 MG/ML 100ML BOTTLE IJ ONE (16:25)
[2019-01-07] MEDS ORDERED: HYDROcodone-ACET 5/325MG TAB PO ONE (17:15)
[2019-01-07] MEDS ORDERED: LEVOFLOXACIN 500MG 100 ML IV ONE (17:30)
[2019-01-07] MEDS ORDERED: NITROGLYCERIN 0.4 MG SL TAB SL PRN (18:15)
[2019-01-07] MEDS ORDERED: MORPHINE SULF INJ 2 MG/ML SYRINGE 1ML IV PRN ×2 (18:15→18:30)
[2019-01-07] MEDS ORDERED: VANCOMYCIN PER PHARMACY 0 MG IV SCH (18:30)
[2019-01-07] MEDS ORDERED: ONDANSETRON HCL 4 MG/2 ML VIAL IV PRN (18:30)
[2019-01-07] MEDS: POTASSIUM CHL 20MEQ/100ML 100 ML IV SCH ×3 (18:54→21:50)
[2019-01-07] MEDS: SOD CHL 0.9%/ KCL 20MEQ 1,000 ML IV SCH (20:43)
--- NOTE | 2019-01-07 20:52 | NUR ---
[facility]AG[facility] HOSPITALIST - PATIENT REQUESTING HER FENTANYL PATCH
--- NOTE | 2019-01-07 21:00 | NUR ---
ADMISSION NOTE: ARRIVED FROM ED. PATIENT WITH SEVERE ARTHRITIS THAT AFFECTS HER WHOLE BODY. HANDS ARE DEFORMED. PATIENT HAS VERY SPECIFIC REQUESTS. A&OX3-4. NSR 80-90s. BP INITIALLY 150s ON 13 MCG/MIN OF LEVOPHED GTT, REDUCED RATE TO 5 MCG/MIN. REPORTS SLIGHT SOB, STATES SHE USES 1L O2 VIA NC AT HOME. LS CTA, DIMINISHED TO BASES. NON-PRODUCTIVE COUGH. SpO2>95% ON RA. ABD SOFT. HYPOACTIVE BS. REPORTS INTERMITTENT NAUSEA. REPORTS RECENT CONSTIPATION. LBM 7/3. REPORTS RECENT WEIGHT LOSS. LOW PATENT AND INTACT, DRAINING PALE YELLOW URINE WITH SEDIMENT/TISSUE-LIKE SUBSTANCE. STATES SHE HAS KIDNEY STONES AND KIDNEY PROBLEMS IN THE PAST. REPORTS INCREASING INCONTINENCE AND URGENCY, VOIDS EVERY 2 HOURS AT HOME. SKIN GROSSLY INTACT NOTED WITH BLANCHABLE ERYTHEMA TO SACRUM/COCCYX, LOWER BACK AND BILATERAL HEELS. 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 RIGHT EAR WITH SCAB, REPORTS HEALING PRESSURE ULCER FROM OXYGEN TUBING. RIGHT IJ TLC, CDI, PATENT WITH BLOOD RETURN. 20 G PIV TO RIGHT FOREARM, CDI, PATENT WITH BLOOD RETURN. ORDERED CONSULT FOR WOUND, DIETARY, AND NEWSPAPER COLUMNIST. REINFORCED POC. MAINTAINED PATIENT SAFETY: BED LOCKED AND IN THE LOWEST POSITION. FREQUENT VISUAL CHECKS. WILL CONT CARE
[2019-01-07] MEDS: VANCOMYCIN 750 MG in D5W 5% 250 ML IV SCH (21:07)
--- NOTE | 2019-01-07 21:26 | NUR ---
SPOKE TO CARMELITA ADAME: NOTIFIED OF PATIENT'S COMPLAINTS OF PAIN AND REQUEST FOR FENTANYL PATCH. PER CARMELITA ADAME, OK FOR FENTANYL PATCH. ORDERS READBACK AND VERIFIED
[2019-01-07] MEDS ORDERED: fentaNYL 100MCG/HR 100 MCG/HR PAT TD SCH (21:30)
--- NOTE | 2019-01-07 21:35 | NUR ---
SPOKE WITH [facility]: ASKED TO VERIFY FENTANYL PATCH. IN REGARD TO MORPHINE ALLERGY, PATIENT STATES SHE DOES NOT KNOW IF SHE HAS A TRUE ALLERGY TO MORPHINE BUT HER MOM FROM MORPHINE AND SHE STATES "EVERYTHING MY MOM HAS BEEN ALLERGIC TO, I HAVE BEEN TOO." PATIENT TAKES NORCOS AT HOME WITH NO REACTION
--- NOTE | 2019-01-07 21:50 | NUR ---
FENTANYL PATCH APPLIED TO RIGHT UPPER ARM
--- NOTE | 2019-01-07 22:30 | NUR ---
UNABLE TO COMPLETE ADMISSION ASSESSMENT, DAUGHTER TO BRING IN HOME MED LIST AND MEDICAL HISTORY
--- NOTE | 2019-01-07 22:30 | NUR ---
KAY, DAUGHTER, AT BEDSIDE- ASKED TO BRING LIST OF HOME MEDS AND MEDICAL HISTORY IN THE AM.
--- NOTE | 2019-01-07 22:40 | NUR ---
NAUSEATED, BURPING, DRY HEAVING - ZOFRAN PRN GIVEN
--- NOTE | 2019-01-07 23:00 | NUR ---
PATIENT VERY ADAMANT ABOUT THE NEED TO GET OOB TO A CHAIR: SHE REPORTS THAT IT IS THE ONLY THE THING THAT HELPS THE PAIN WHEN SHE IS PASSING A KIDNEY STONE. EDUCATED ON SAFETY CONCERNS. PATIENT STILL VERY ADAMANT AT THIS TIME. ASSISTED PATIENT TO RECLINER CHAIR WITH ASSISTANCE OF RUSS SARAVIA. PATIENT SITTING ON A PILLOW, AND HAS OWN PILLOW FROM HOME TO HELP TO DISTRIBUTE WEIGHT.
[2019-01-07] MEDS ORDERED: PROMETHAZINE HCL 25 MG/ML 1ML IV ONE (23:15)
--- NOTE | 2019-01-07 23:15 | NUR ---
STILL VERY NAUSEATED AND BURPING - SPOKE WITH CARMELITA ADAME: ORDERS FOR 12.5 MG PROMETHAZINE IVPB X1 DOSE. ORDERS READBACK AND VERIFIED
--- NOTE | 2019-01-07 23:25 | NUR ---
PROMETHAZINE ONE TIME DOSE GIVEN
[2019-01-08] VITALS (93 sets, daily range): BP systolic 56–154; BP diastolic 28–118
[2019-01-08] MEDS: HYDROcodone-ACET 5/325MG TAB PO PRN ×5 (00:07→23:41)
--- NOTE | 2019-01-08 00:07 | NUR ---
PATIENT DOING BETTER IN THE CHAIR, REPORTS PAIN MORE TOLERABLE
[2019-01-08] MEDS ORDERED: FAMOTIDINE 20 MG TAB ONE (00:22)
[2019-01-08] MEDS: FAMOTIDINE 20 MG TAB PO SCH ×2 (00:23→10:52)
--- NOTE | 2019-01-08 00:24 | NUR ---
PATIENT COMPLAINING OF ACID REFLUX, SCHEDULED AM PEPCID GIVEN EARLY
[2019-01-08 00:39] LABS: Urine Bacteria NONE SEEN /hpf (None Seen); Urine Blood 1+ /uL (Negative); Urine Hyaline Cast FEW /lpf (0 - 2); Urine Specific Gravity 1.012 (1.001-1.035); Urine WBC 434 /hpf (0 - 5); Urine WBC Clumps PRESENT /hpf (None Seen)
--- NOTE | 2019-01-08 01:00 | NUR ---
PATIENT COMPLAINING OF PAIN AND REFLUX; ASKING FOR ANOTHER PAM - PAGED HUMANITIES PROFESSOR HOSPITALIST
[2019-01-08] MEDS ORDERED: HYDROcodone-ACET 5/325MG TAB PO ONE (01:15)
[2019-01-08] MEDS ORDERED: ALBUMIN 5% 250 ML IV ONE (01:15)
--- NOTE | 2019-01-08 01:15 | NUR ---
SPOKE TO CARMELITA ADAME: PER JOSEPH ADAME TO GIVE ANOTHER 1X DOSE OF 5/325 NORCO. NO TUMS AT THIS TIME. ORDERS FOR 25% 250 ML ALBUMIN X1 DOSE AND GET PATIENT OFF OF LEVO GTT. ORDERS READBACK AND VERIFIED.
--- NOTE | 2019-01-08 02:35 | NUR ---
REMAINS UP IN CHAIR, DOES NOT WANT TO GO BACK TO BED
--- NOTE | 2019-01-08 03:08 | NUR ---
+ BLOOD CULTURES X2 - GRAM "-" RODS
[2019-01-08 04:00] LABS: Hematocrit 28.8 % (36.0-46.0); Hemoglobin 9.6 g/dL (12.2-16.2); Mean Corpuscular Hemoglobin 29.5 pg (28.0-32.0); Mean Corpuscular Hgb Conc. 33.4 g/dL (32.0-36.0); Mean Corpuscular Volume 88.4 fL (80.0-100.0); Platelet Count (auto) 228 10^3/uL (140-450); Red Blood Cells 3.26 10^6/uL (4.0-5.20); Red Cell Distribution Width 17.1 % (11.8-14.3); White Blood Cell 17.9 10^3/uL (4.4-10.8)
[2019-01-08 04:21] LABS: BUN/Creatinine Ratio 14.3; Calcium 8.4 mg/dL (8.5-10.1); Potassium 4.2 mmol/L (3.5-5.1)
[2019-01-08] MEDS: SOD CHL 0.9%/ KCL 20MEQ 1,000 ML IV SCH ×2 (04:30→08:44)
--- NOTE | 2019-01-08 04:38 | NUR ---
PATIENT REMAINS UP IN CHAIR, APPEARS MORE COMFORTABLE THAN PREVIOUSLY
[2019-01-08 04:45] LABS: Basophils % (manual) 0 (0.0-2.0); Blast Cells 0; Eosinophils % (manual) 0 (0-7); Metamyelocytes % 0; Myelocytes % 0; Promyelocytes % 0; Reactive Lymphocytes 0
--- NOTE | 2019-01-08 04:49 | NUR ---
SERUM GLUCOSE 64 IN AM LAB DRAW - PATIENT ASYMPTOMATIC - 1 CUP OF ORANGE JUICE GIVEN
[2019-01-08 05:26] LABS: Band Neutrophils % (manual) 1; Lymphocytes % (manual) 3 (10.0-50.0); Monocytes % (manual) 3 (0-12)
--- NOTE | 2019-01-08 06:15 | NUR ---
PATIENT BACK INTO BED
--- NOTE | 2019-01-08 06:34 | NUR ---
PATIENT'S DAUGHTER CALLED INTERNIST: AFTER PASSWORD VERIFIED, UPDATED ON PATIENT'S STATUS. ANSWERED QUESTIONS ABLE. NO FURTHER QUESTIONS AT THIS TIME
--- NOTE | 2019-01-08 06:42 | NUR ---
CLOSING NOTE: PATIENT FINALLY ASLEEP. PER DAUGHTER, THE PATIENT SLEEPS AT 0500/0600 AND WAKES UP AT 1400 IN THE AFTERNOON. VSS AT THIS TIME, WILL CONT CARE
--- NOTE | 2019-01-08 06:50 | NUR ---
ASKED RT TO DEFER BREATHING TREATMENT AT THIS TIME, PATIENT JUST FELL ASLEEP.
[2019-01-08] MEDS: IPRATROPIUM BROM 0.5 MG/2.5ML INH SOL NEB SCH ×3 (07:00→18:18)
[2019-01-08] MEDS: ALBUTEROL SULF 2.5 MG/0.5ML(0.5%) NEB SOLN NEB SCH ×3 (07:00→18:18)
--- NOTE | 2019-01-08 07:30 | NUR ---
RESTARTED LEVO GTT SBP IN 60s - PATIENT ASLEEP
--- NOTE | 2019-01-08 07:31 | NUR ---
REPORT AND CARE ENDORSED TO RUSS GAGNON
--- NOTE | 2019-01-08 07:31 | NUR ---
REPORT RECEIVED FROM LABORATORY ANIMAL FACILITY SUPERVISOR NURSE. PATIENT RESTING IN BED AT THIS TIME. RESPIRATIONS EVEN AND UNLABORED. NO SIGNS OF ACUTE DISTRESS NOTED AT THIS TIME. CALL LIGHT IN REACH, BED IN LOW POSITION. WILL CONTINUE TO TO MONITOR.
--- NOTE | 2019-01-08 09:04 | NUR ---
REMOVED PATIENTS FENTANYL PATCH DUE TO PERSISTENT DECREASED BLOOD PRESSURE. INFORMED PATIENT WILL DISCUSS WITH MD ABOUT ADJUSTING PAIN MEDICATIONS TOLERATED BY PATIENT. PATIENT VERBALIZED UNDERSTANDING.
[2019-01-08] MEDS: LEVOFLOXACIN 750MG 150 ML IV SCH (10:46)
--- NOTE | 2019-01-08 12:00 | NUR ---
WOUND CARE NOTE: IN TO SEE PATIENT AT THIS TIME PER WOUND CARE CONSULT REQUEST. PATIENT RECENTLY ADMITTED TO [facility] WITH DIAGNOSIS OF SEPTIC SHOCK. CURRENT PAULO SCORE IS 13. WOUND CONSULT ORDERED FOR PATIENT D/T ERYTHEMA NOTED TO SACRUM AT TIME OF ADMIT. PATIENT RECEIVING OXYGEN BY NASAL CANULA. SHE IS AWAKE, ALERT, ORIENTED X 4, WITH CHRONIC BACK PAIN NOTED BY PATIENT. SHE IS ON LEVOPHED VASOPRESSOR CURRENTLY. PATIENT IS ABLE TO ASSIST WITH HER TURNING/REPOSITIONING. SHE IS NOTED TO HAVE DARK RED SACRUM/BUTTOCKS. SKIN IS DARK RED, BUT BLANCHES. WOUND PHOTO TAKEN AT THIS TIME FOR REFERENCE. APPLIED MOISTURE BARRIER CREAM, OPTIFOAM GENTLE SACRAL DRESSING PREVENTATIVE. BILATERAL HEELS AND OTHER BONY PROMINENCES ARE PINK, BLANCHABLE. REPOSITIONED PATIENT ONTO HER LEFT SIDE, REDISTRIBUTING PRESSURE POINTS WITH MULTIPLE PILLOWS. NO OTHER SKIN INTEGRITY ISSUES SEEN AT THIS TIME. RECOMMEND: FREQUENT TURN SCHEDULE Q 2 HOURS, PRN CONDITION PERMITS, WITH PRESSURE REDISTRIBUTION USING PILLOWS/WEDGES, BID/PRN APPLICATION WITH MOISTURE BARRIER CREAM, OPTIFOAM GENTLE SACRAL DRESSING PREVENTATIVE, DIETARY CONSULT, SKIN/WOUND CARE PLAN, CONTINUED MONITORING BY WOUND CARE TEAM. Addendum: 01/08/19 at 1457 by Fadumo Carvajal RN Amended: Links added.
--- NOTE | 2019-01-08 12:03 | NUR ---
Nutrition consult/assessment Notes Please see attached link for complete assessment Est. Needs IBW 50 [id number] kcal (25-30 kcal/kgBW), 50-60 gms pro (1.0-1.2 gms/kgBW). Will continue to monitor pertinent labs and reassess nutrient need prn. will Reassess per bed scale wt Addendum: 01/08/19 at [address] Amended: Links added.
--- NOTE | 2019-01-08 12:12 | NUR ---
DR VIVAR AT BEDSIDE TO ASSESS PATIENT AND DISCUSS PLAN OF CARE. MD INFORMED OF PATIENTS CHRONIC PAIN AND DECREASED BLOOD PRESSURE WELL REMOVING THE FENTANYL PATCH. ALL ORDERS NOTED IN CHART.
[2019-01-08] MEDS ORDERED: SENNA 8.6 MG TAB PO PRN (12:15)
[2019-01-08] MEDS ORDERED: SODIUM CHLORIDE 0.9% 500 ML IV ONE (12:15)
[2019-01-08] MEDS ORDERED: SODIUM CHLORIDE 0.9% 1,000 ML IV SCH (12:15)
[2019-01-08] MEDS ORDERED: POLYETHYLENE GLYCOL 17 GM PWDR PO PRN (12:15)
[2019-01-08] MEDS: DOCUSATE SOD 100 MG CAP PO PRN (12:25)
[2019-01-08] MEDS: ENOXAPARIN SOD 40 MG/0.4 ML SYRINGE SC SCH (12:26)
[2019-01-08] MEDS: ALBUMIN 25% 50 ML IV SCH ×2 (12:29→20:20)
--- NOTE | 2019-01-08 12:40 | NUR ---
WOUND CARE NURSE AT BEDSIDE TO ASSESS PATIENT AND DISCUSS PLAN OF CARE. PHOTOS TAKEN.
[2019-01-08] MEDS: SODIUM CHLORIDE 0.9% 1,000 ML IV SCH ×2 (13:39→18:04)
[2019-01-08] MEDS ORDERED: ASPI325T4 PO (17:48)
[2019-01-08] MEDS ORDERED: FENT75DI TD (17:48)
[2019-01-08] MEDS ORDERED: METH2.5T3 PO (17:48)
[2019-01-08] MEDS ORDERED: HYDR-531 PO (17:48)
[2019-01-08] MEDS ORDERED: LACT10SO3 PO (17:48)
[2019-01-08] MEDS ORDERED: DIPH25CA66 PO (17:48)
[2019-01-08] MEDS ORDERED: FOLI1TAB6 PO (17:48)
[2019-01-08] MEDS ORDERED: FERR-20 PO (17:48)
[2019-01-08] MEDS ORDERED: OMEP20TA PO (17:48)
[2019-01-08] MEDS ORDERED: PRE1T PO (17:48)
[2019-01-08] MEDS ORDERED: OMEG100078 PO (17:48)
[2019-01-08] MEDS ORDERED: IBUP800T24 PO (17:48)
[2019-01-08] MEDS ORDERED: [UNRECOGNIZED DRUG - CODE] PO (17:48)
[2019-01-08] MEDS ORDERED: PAR20T PO (17:48)
[2019-01-08] MEDS ORDERED: FURO20TA PO (17:48)
[2019-01-08] MEDS ORDERED: BACL10TA PO (17:48)
[2019-01-08] MEDS ORDERED: LEVOFLOXACIN 750MG 150 ML IV SCH (18:00)
--- NOTE | 2019-01-08 18:00 | NUR ---
PATIENT REQUESTED TO WAIT ON REPOSITIONING DUE TO PAIN. WOULD LIKE TO WAIT FOR ABOUT AN HOUR. Addendum: 01/08/19 at 1904 by Rocío Villagran RN Amended: Links added.
[2019-01-08] MEDS: NOREPINEPHRINE 8 MG/250ML KIT 250 ML IV SCH (18:05)
--- NOTE | 2019-01-08 20:00 | NUR ---
ADMITTED ON January WITH A UTI, + BLOOD CULTURE, PNA AND SEPTIC SHOCK. THROUGH LAST NIGHT SHE WAS PAINFUL, NAUSEATED ,BELCHING. AFTER RECEIVING ANTIBIOTICS, PEPCID, LEVOPHED, AND FLUIDS SHE IS IMPROVING. LEVOPHED IS ON LOW DOSE. NO NAUSEA OR BELCHING. SKIN: LARGE RED AREA ON BUTTOCKS AND HEELS. WOUND CARE INVOLVED. REPOSITIONED PATIENT TO HER LEFT SIDE. ALERT. ORIENTED. HAS FREQUENT SPECIAL NEEDS. LUNGS CLEAR. ON 1LNP. DIETARY INTAKE IS LOW. PATIENT STATED THAT SHE HAS LOST A LARGE AMOUNT OF WEIGHT OVER THE LAST YEAR. LOW IN PLACE DRAINING CLEAR YELLOW LIQUID TO DOWN DRAIN BAG. HAS DENTURES. SHE WANTS HER MULTIPLE SUGARY SWEETS NEAR HER. PATIENT IS AWARE SHE HAS KIDNEY STONES. PATIENT IS AWARE OF HOW SHE CAME HERE AND HER DIAGNOSIS. DONOVAN. LIKES HER LEGS BENT AND THEY ARE STIFF. HANDS ARE IN A CRIPPLED DISTORTED ARTHRITIC SHAPE. SHE IS ABLE TO USE HER HANDS FOR SMALL THINGS. TRIPLE LUMEN CENTRAL LINE RIGHT SUBCLAVIAN. ON LEVAQUIN AND VANCOMYCIN.
[2019-01-08] MEDS: VANCOMYCIN 750 MG in D5W 5% 250 ML IV SCH (20:19)
--- NOTE | 2019-01-08 22:00 | NUR ---
ATTEMPTED TO WEAN LEVOPHED FROM 3 TO 2 AND WAS UNSUCCESSFUL. NSR WITHOUT ECTOPY. LUNGS CLEAR. LOW DRAINING CLEAR YELLOW LIQUID TO DOWN DRAIN BAG. IV SHOWS NO REDNESS OR SWELLING
[2019-01-09] VITALS (55 sets, daily range): BP systolic 95–144; BP diastolic 39–71
--- NOTE | 2019-01-09 | NUR ---
NORCO GIVEN FOR LEVEL 10 PAIN. NO NAUSEA. NSR WITHOUT ECTOPY. PLEASANT. SBP : UNABLE TO TITRATE LEVOPHED.
--- NOTE | 2019-01-09 01:27 | NUR ---
TOOK A BLANKET OFF
--- NOTE | 2019-01-09 03:00 | NUR ---
AM LAB DRAW
[2019-01-09] MEDS: ALBUMIN 25% 50 ML IV SCH (03:39)
[2019-01-09] MEDS: SODIUM CHLORIDE 0.9% 1,000 ML IV SCH ×2 (03:40→14:46)
[2019-01-09 03:56] LABS: Basophils # (auto) 0 uL; Basophils % (auto) 0.6 % (0.0-2.0); Eosinophils # (auto) 0 uL; Eosinophils % (auto) 0.5 % (0.0-7.0); Hemoglobin 8.8 g/dL (12.2-16.2); Lymphocytes # (auto) 0.3 uL; Lymphocytes % (auto) 4.6 % (10.0-50.0); Mean Corpuscular Hemoglobin 29.9 pg (28.0-32.0); Mean Corpuscular Hgb Conc. 33.8 g/dL (32.0-36.0); Mean Corpuscular Volume 88.6 fL (80.0-100.0); Monocytes # (auto) 0.3 uL; Neutrophils # (auto) 6.2 uL; Neutrophils % (auto) 90.3 % (37.0-80.0); Platelet Count (auto) 170 10^3/uL (140-450); Red Blood Cells 2.94 10^6/uL (4.0-5.20); Red Cell Distribution Width 16.9 % (11.8-14.3); White Blood Cell 6.9 10^3/uL (4.4-10.8)
[2019-01-09 04:16] LABS: BUN/Creatinine Ratio 7.8; Magnesium 1.8 mg/dL (1.6-2.6); Potassium 3.7 mmol/L (3.5-5.1)
[2019-01-09] MEDS: ACETAMINOPHEN 500 MG TAB PO PRN ×2 (04:32→20:11)
--- NOTE | 2019-01-09 04:49 | NUR ---
hot pack to right knee
--- NOTE | 2019-01-09 05:00 | NUR ---
LEVOPHED 0.5
[2019-01-09] MEDS: IPRATROPIUM BROM 0.5 MG/2.5ML INH SOL NEB SCH ×3 (06:08→20:30)
[2019-01-09] MEDS: ALBUTEROL SULF 2.5 MG/0.5ML(0.5%) NEB SOLN NEB SCH ×3 (06:08→20:30)
[2019-01-09] MEDS: HYDROcodone-ACET 5/325MG TAB PO PRN ×2 (06:10→22:34)
--- NOTE | 2019-01-09 07:20 | NUR ---
OPENING NOTE RECEIVED REPORT AND ASSUMED CARE OF PT FROM CATHERINE SOLANO PT IS AWAKE AND ORIENTED X 4. REPOSITIONED PT AND IS ON ELEVATED PILLOWS TO LEGS TO KEEP PRESSURE OFF HEELS. NO S/S OF DISTRESS AT THIS TIME. BED IN LOWEST POSITION AND CALL LIGHT WITHIN REACH. NO QUESTIONS OR CONCERNS AT THIS TIME. WILL CONTINUE TO MONITOR.
[2019-01-09] MEDS: FAMOTIDINE 20 MG TAB PO SCH (10:42)
[2019-01-09] MEDS: ENOXAPARIN SOD 40 MG/0.4 ML SYRINGE SC SCH (10:43)
--- NOTE | 2019-01-09 12:30 | NUR ---
COOLING MEASURES INITIATED FOR TEMP 100.4, PT SHIVERING, ELEVATED BP, HR. ORDERS RECEIVED WILL CONTINUE TO MONITOR.
--- NOTE | 2019-01-09 12:30 | NUR ---
DR. VIVAR AT BEDSIDE ORDERS RECEIVED
[2019-01-09] MEDS: NOREPINEPHRINE 8 MG/250ML KIT 250 ML IV SCH (14:07)
[2019-01-09] MEDS: fentaNYL 50MCG/HR 50 MCG/HR PAT TD SCH (14:44)
[2019-01-09] MEDS: Ensure Enlive Vanilla 8oz Bottle PO SCH (18:00)
--- NOTE | 2019-01-09 19:05 | NUR ---
CLOSING NOTE SHIFT REPORT GIVEN AND CARE ENDORSED TO CATHERINE SOLANO
[2019-01-09] MEDS: VANCOMYCIN 750 MG in D5W 5% 250 ML IV SCH (20:00)
--- NOTE | 2019-01-09 20:00 | NUR ---
RESPIRATORY TREATMENT DONE. TEMP 100. TYLENOL GIVEN. SINUS TACHYCARDIA 100. NO ECTOPY. PATIENT IS A LITTLE SHAKY. PATIENT STATED THAT IT IS BETTER. ALERT. ORIENTED. DONOVAN. SPEECH CLEAR. ON 1LNP. LUNGS CLEAR. PRODUCTIVE COUGH OF BLOODY SECRETIONS. ABDOMEN SOFT. DENIES ABDOMINAL PAIN. APPETITE POOR NOT JUST TODAY BUT FOR A LONG TIME ACCORDING TO THE PATIENT. BOTH FOREARMS HAVE A LARGE AMOUNT OF ECCHYMOSIS AND A FEW SCABS. NO OPEN WOUNDS. LAST BM 01/06/2019. RIGHT WRIST IV DISCONTINUED. PRESSURE APPLIED AND BANDAID APPLIED. RSC TLC LARGE AMOUNT OF LT BROWN LIQUID AT SITE. REMOVED DRESSING. USED THE CENTRAL LINE DRESSING KIT AND CLEANED /REDRESSED THE CENTRAL LINE SITE. JUST THE INSERTION SITE SHOWED A SMALL AMOUNT OF RED SKIN. JUST ABOVE THE INSERTION SITE IS AN ECCHYMOTIC AREA. CHECKED BOTH THE HEELS WHICH ARE COVERED WITH A FOAM DRESSING. BOTH SHOW NO REDNESS. THEY ARE BOTH CURRENTLY LYING ON THE BED AND THE PATIENT STATED THAT SHE WANTED IT THAT WAY. LARGE AREA ON BUTTOCKS IS RED. PICTURE IN CHART. ASKED IF SHE WOULD LIKE TO TURN AND SHE REFUSED.
--- NOTE | 2019-01-09 22:00 | NUR ---
REFUSED TO TURN WHILE DAUGHTER WAS HERE. TEMP IMPROVING. PATIENT STILL A LITTLE SHAKY. HEART RATE COMING DOWN. BP STABLE. CENTRAL LINE DRESSING SITE CLEAN AND DRY.
[2019-01-10] VITALS (38 sets, daily range): BP systolic 82–138; BP diastolic 34–76
--- NOTE | 2019-01-10 | NUR ---
REPOSITIONED PATIENT. WASHED FACE. NEW GOWN. NEW PULL SHEET. FRESH WATER. DRANK A GLASS OF WATER. HEELS OFF BED. BOTTOM OF HEELS LOOKS LIKE NORMAL SKIN COLOR. BUTTOCKS IS RED. CENTRAL LINE DRESSING SHOWS NO DRNG. NSR WITHOUT ECTOPY. NO PAIN. NSR WITHOUT ECTOPY. BP STABLE.
--- NOTE | 2019-01-10 02:00 | NUR ---
VSS. NO CHANGE IN STATUS. PATIENT SLEEPING.
--- NOTE | 2019-01-10 04:00 | NUR ---
REPOSITIONED TO HER RIGHT SIDE WITH MAX ASSIST. NSR WITHOUT ECTOPY. BP STABLE. LUNGS CLEAR. COARSE , NONPRODUCTIVE COUGH. ABDOMEN SOFT. NO BM. IV SHOWS NO REDNESS OR SWELLING. ALL PULSES PALPABLE. PULLED UP IN BED. LOW DRAINING A LARGE AMOUNT OF URINE OUTPUT. NO FEVER.
[2019-01-10 04:03] LABS: Hemoglobin 8.5 g/dL (12.2-16.2); Mean Corpuscular Volume 88.3 fL (80.0-100.0); Platelet Count (auto) 133 10^3/uL (140-450); Red Blood Cells 2.83 10^6/uL (4.0-5.20); Red Cell Distribution Width 16.8 % (11.8-14.3); White Blood Cell 3.4 10^3/uL (4.4-10.8)
[2019-01-10 04:12] LABS: Calcium 7.7 mg/dL (8.5-10.1); Potassium 3.3 mmol/L (3.5-5.1)
[2019-01-10 04:14] LABS: BUN/Creatinine Ratio 7.4
[2019-01-10 04:30] LABS: Band Neutrophils % (manual) 0; Basophils % (manual) 0 (0.0-2.0); Blast Cells 0; Eosinophils % (manual) 0 (0-7); Metamyelocytes % 0; Myelocytes % 0; Promyelocytes % 0; Reactive Lymphocytes 0
--- NOTE | 2019-01-10 06:00 | NUR ---
PATIENT WANTED THE O2 TUBING OFF HER RIGHT EAR. SCAB ON RIGHT EAR.
[2019-01-10 06:03] LABS: Lymphocytes % (manual) 18 (10.0-50.0); Monocytes % (manual) 2 (0-12)
--- NOTE | 2019-01-10 07:10 | NUR ---
OPENING NOTE SHIFT REPORT RECEIVED AND ASSUMED CARE OF PT FROM CATHERINE SOLANO
[2019-01-10] MEDS: IPRATROPIUM BROM 0.5 MG/2.5ML INH SOL NEB SCH ×3 (07:18→18:12)
[2019-01-10] MEDS: ALBUTEROL SULF 2.5 MG/0.5ML(0.5%) NEB SOLN NEB SCH ×3 (07:18→18:13)
--- NOTE | 2019-01-10 07:40 | NUR ---
PAGED HOSPITALIST FOR POTASSIUM 3.3
--- NOTE | 2019-01-10 07:50 | NUR ---
SPOKE WITH [facility] ORDERS RECEIVED
[2019-01-10] MEDS: Ensure Enlive Vanilla 8oz Bottle PO SCH ×2 (08:00→19:45)
--- NOTE | 2019-01-10 08:10 | NUR ---
TRANSFER ORDERS TO DOWNGRADE BUT NO BED AVAILABLE AT THIS TIME.
[2019-01-10] MEDS: HYDROcodone-ACET 5/325MG TAB PO PRN ×3 (08:11→22:05)
[2019-01-10] MEDS: DOCUSATE SOD 100 MG CAP PO PRN (08:11)
[2019-01-10] MEDS ORDERED: POTASSIUM CHL 20MEQ/100ML 100 ML IV ONE (08:15)
[2019-01-10] MEDS ORDERED: VANCOMYCIN 500 MG in D5W 5% 100 ML IV SCH (10:00)
[2019-01-10] MEDS: ENOXAPARIN SOD 40 MG/0.4 ML SYRINGE SC SCH (10:18)
[2019-01-10] MEDS: FAMOTIDINE 20 MG TAB PO SCH (10:19)
[2019-01-10] MEDS: LEVOFLOXACIN 750MG 150 ML IV SCH (10:41)
[2019-01-10] MEDS: SODIUM CHLORIDE 0.9% 1,000 ML IV SCH ×2 (10:54→15:20)
--- NOTE | 2019-01-10 13:30 | NUR ---
CALL FROM PHARMACY [facility]IP[facility]A PER POSSIBLE CONTAMINATION OF CULTURE. WILL GIVE A CALL TO DR. VIVAR Addendum: 01/10/19 at 1556 by BELLA SILVESTRE RN RN STATES WILL MONITOR FINAL RESULTS Addendum: 01/10/19 at 1559 by BELLA SILVESTRE RN RN INCORRECT TIME CORRECT TIME [id number]
[2019-01-10] MEDS: NOREPINEPHRINE 8 MG/250ML KIT 250 ML IV SCH (14:07)
--- NOTE | 2019-01-10 14:45 | NUR ---
CALL TO DR. VIVAR FOR BLOOD CULTURE RESULTS. ORDERS RECEIVED
--- NOTE | 2019-01-10 15:50 | NUR ---
DR. VIVAR AWARE OF CANCELLED VANCO PER PHARMACY
--- NOTE | 2019-01-10 19:15 | NUR ---
CLOSING NOTE SHIFT REPORT GIVEN AND CARE ENDORSED TO JOSIE SOLANO
--- NOTE | 2019-01-10 19:45 | NUR ---
INITIAL CONTACT ASSUMED CARE OF PATIENT PATIENT APPEARS TO BE SITTING UP IN BED IN SEMI-FOWLERS POSITION EATING DINNER AT THIS TIME 4AAOX4, VITAL SIGNS WITHIN NORMAL LIMITS. PATIENT IS ON 2L OXYGEN VIA NASAL CANNULA O2 SAT 96%. NO S/S OF DISTRESS NOTED. PATIENT DENIES PAIN AT THIS TIME. DINNER CONSUMED 25%, PATIENT REFUSED ENSURE. NOTED LOW CATHETER IN PLACE AND DRAINING TO GRAVITY. NOTED RIGHT TRIPLE LUMEN CATH TO UPPER CHEST NO S/S OF PHLEBITIS OR INFILTRATION. PATIENT READJUSTED IN BED FOR COMFORT. SAFETY MAINTAINED, WILL CONTINUE TO MONITOR.
--- NOTE | 2019-01-10 19:55 | NUR ---
CARE ENDORSED TO RUSS MALDONADO FULL REPORT GIVEN ALL QUESTIONS AND CONCERNS WERE ANSWERED
--- NOTE | 2019-01-10 21:05 | NUR ---
PATIENT TRANSFERRED TO TELE BED 247B RUSS MALDONADO PATIENT TRANSPORTED BY RUSS TOUSSAINT AND ANA CHARGE NURSE NO S/S OF DISTRESS NOTED TELE MONITOR ATTACHED TO PATIENT AND IN WORKING CONDITION PATIENT ON 2L OXYGEN VIA NASAL CANNULA/PORTABLE OXYGEN TANK
--- NOTE | 2019-01-10 21:20 | NUR ---
[facility] after SBAR received. Patient oriented to Javed valentin RN, unit, room 247, bed B, and unit policies regarding patient care and visiting hours. Patient now on continuous telemetry monitoring, tele box #11 and telemetry reading on arrival to unit is STACH 106. Patient placed on bedside oxygen, weighed by bedscale and encouraged to call if they need something. All questions and concerns addressed, patient verbalized understanding.
[2019-01-11] MEDS: SODIUM CHLORIDE 0.9% 1,000 ML IV SCH ×2 (04:00→16:39)
[2019-01-11 05:00] VITALS: BP 131/68
[2019-01-11 06:31] LABS: Potassium 3.4 mmol/L (3.5-5.1)
[2019-01-11 06:37] LABS: BUN/Creatinine Ratio 9.2; Calcium 8.2 mg/dL (8.5-10.1); Magnesium 1.8 mg/dL (1.6-2.6)
[2019-01-11 06:44] LABS: Hematocrit 26.5 % (36.0-46.0); Hemoglobin 8.9 g/dL (12.2-16.2); Mean Corpuscular Hemoglobin 29.5 pg (28.0-32.0); Mean Corpuscular Hgb Conc. 33.5 g/dL (32.0-36.0); Mean Corpuscular Volume 88.2 fL (80.0-100.0); Platelet Count (auto) 133 10^3/uL (140-450); Red Blood Cells 3.01 10^6/uL (4.0-5.20); Red Cell Distribution Width 17.1 % (11.8-14.3); White Blood Cell 3.5 10^3/uL (4.4-10.8)
[2019-01-11] MEDS: IPRATROPIUM BROM 0.5 MG/2.5ML INH SOL NEB SCH ×3 (06:53→18:48)
[2019-01-11] MEDS: ALBUTEROL SULF 2.5 MG/0.5ML(0.5%) NEB SOLN NEB SCH ×3 (06:53→18:48)
[2019-01-11 07:30] LABS: Basophils % (manual) 0 (0.0-2.0); Blast Cells 0; Metamyelocytes % 0; Myelocytes % 0; Promyelocytes % 0; Reactive Lymphocytes 0
--- NOTE | 2019-01-11 07:45 | NUR ---
Opening Shift Note Assumed care of patient, awake and alert. No S/S of distress/SOB. Reports chronic pain in back. No request for pain meds at this time. Instructed on POC and to call for assist PRN, will continue to monitor for changes Q1hr and PRN. Call light within reach. Bed alarm on
[2019-01-11 07:58] LABS: Band Neutrophils % (manual) 5; Eosinophils % (manual) 4 (0-7); Lymphocytes % (manual) 14 (10.0-50.0); Monocytes % (manual) 9 (0-12)
[2019-01-11] MEDS: Ensure Enlive Vanilla 8oz Bottle PO SCH ×2 (08:00→18:00)
[2019-01-11] MEDS: HYDROcodone-ACET 5/325MG TAB PO PRN ×2 (08:45→16:36)
[2019-01-11] MEDS: FAMOTIDINE 20 MG TAB PO SCH (08:45)
--- NOTE | 2019-01-11 08:45 | NUR ---
Repositioned Repositioned patient to right side. Patient tolerated well.
[2019-01-11] MEDS: ENOXAPARIN SOD 40 MG/0.4 ML SYRINGE SC SCH (08:46)
[2019-01-11 09:12] VITALS: BP 115/54
[2019-01-11 09:14] VITALS: BP 115/54
--- NOTE | 2019-01-11 09:47 | NUR ---
F/U on blood cultures Blood cultures are still pending. Attempted to contact lab. No answer. Will attempt again at later time
--- NOTE | 2019-01-11 12:00 | NUR ---
F/U on blood cultures Blood cultures are still pending. Attempted to contact lab. No answer. Will attempt again at later time
--- NOTE | 2019-01-11 12:16 | NUR ---
Nutrition Follow-up Notes Wt.: 61.8 kg Pt was sleeping with no family by bedside. per pt records pt with septic shock due to UTI. pt is bed bound per records. pt is currently on cardiac diet with ensure Enlive 1 cartoon BID with poor PO of 25% x 4 per RN doc as pt is refusing to eat and drink ensure. Est. Needs IBW 50 [id number] kcal (25-30 kcal/kgBW), 50-60 gms pro (1.0-1.2 gms/kgBW). Will continue to monitor pertinent labs and reassess nutrient need prn. will Reassess per bed scale wt Labs: CA 8.2 L. rest lab wnl for today Skin: Trung scale 14, mod risk, redness to heel and sacrum per RN doc GI: Pt has no BM reported constipated per assistant customer service manager. PES: Altered nutrition related lab values r/t current/chronic medical condition aeb mod hypoalb, hypocalcemia 2) Increased nutrient needs r/t current chronic medical condition aeb pt`s with inadequate PO and wt loss per records Will continue to monitor PO intake, skin status, pertinent labs and weight trend. F/u in 3-5 days. Rec.: 1.) continue assistance with meals. 2) consider Megace if appetite is low. 3) consider ST eval if needed. 4) continue current plan of care
[2019-01-11 13:00] VITALS: BP 93/49
--- NOTE | 2019-01-11 13:34 | NUR ---
Lab on unit Spoke to lab personal regarding uncollected lab. Lab personal contacting lab dept.
--- NOTE | 2019-01-11 13:40 | NUR ---
Blood culture follow up Per lab personal blood culture order did not transfer to lab. golf technician aware of order and reports the lab will be drawn.
--- NOTE | 2019-01-11 15:02 | NUR ---
LAB-NO BLOOD CULTURE OBTAINED PER LAB THE BLOOD CULTURE HAS NOT BEEN OBTAINED DUE TO THE ORDER NOT CROSSING OVER. PER LAB HE IS UNABLE TO DRAW LAB WITHOUT ORDER. WILL CONTACT TO UPDATE
--- NOTE | 2019-01-11 15:05 | NUR ---
DR. SHAMEKA VIVAR AT BEDSIDE. UPDATED ON CURRENT ISSUE WITH BLOOD CULTURE. PER MD HE WILL RE-ORDER BLOOD CULTURE
--- NOTE | 2019-01-11 15:16 | NUR ---
FAMILY UPDATE CALLED AND SPOKE WITH PATIENT'S DAUGHTER LUZ. UPDATED ON POC. ALL QUESTIONS AND CONCERNS ADDRESSED.
--- NOTE | 2019-01-11 15:24 | NUR ---
FOLLOW UP ON BOWEL MOVEMENT PER PATIENT SHE REPORTS THAT HER LAST BOWEL MOVEMENT WAS 01/09, NOT 01/06
--- NOTE | 2019-01-11 15:32 | NUR ---
assessment Patient is a 73 year old female who is alert and oriented. Prior to admission patient lived home and her 2 daughters live with her. Per patient her daughters help her at home. Patient has a cane for home use. Patient informed me her PCP is Dr Dr Lopez. Patient has advanced directive and POA. Patient informed me she feels safe returning home on discharge. I informed patient she has a ss consult regarding she relies on daughters for care. Patient informed me her daughters do help her in the home and it is no problem. Patient may benefit from home health safety on discharge. Patient verbalized understanding and agreed to discharge plan home on discharge. Addendum: 01/13/19 at 1545 by María ALMEIDA Amended: Links added.
--- NOTE | 2019-01-11 15:59 | NUR ---
Dr. Louis follow up Received call from Dr. Louis. Received orders. Reread orders back to MD. Restart selected home medications. D/C central line and send tip for culture. Per MD do not remove central line until IV access is obtained. Per MD he would like primary RN to contact Dr. Kerr regarding echo, R/O endocarditis.
--- NOTE | 2019-01-11 16:03 | NUR ---
Paged MD Kerr per [facility] [email or web address]
--- NOTE | 2019-01-11 16:06 | NUR ---
Cirilo-Echo results MD Kerr returned call. Last echo that is currently reviewing was on 12/10/2017. Per MD echo shows no vegetation, no endocarditis.
[2019-01-11] MEDS ORDERED: METHOTREXATE 2.5 MG TAB PO SCH (16:15)
--- NOTE | 2019-01-11 16:21 | NUR ---
Home medications Called patient's daughter Christopher to notify her to bring in patients home medications. No answer, left message.
--- NOTE | 2019-01-11 16:29 | NUR ---
Family return call Received call back from Christopher. Per Christopher she will be in later today to bring in home medications
[2019-01-11 16:37] VITALS: BP 105/69
--- NOTE | 2019-01-11 17:45 | NUR ---
IV ACCESS-UNSUCCESSFUL ATTEMPTED TO OBTAIN IV ACCESS. UNSUCCESSFUL AT THIS TIME.
--- NOTE | 2019-01-11 18:45 | NUR ---
Daughter at bedside Daughter Christopher at bedside. Provided food from home. Patient eating and tolerating well.
[2019-01-11] MEDS: DOCUSATE SOD 100 MG CAP PO PRN (18:51)
--- NOTE | 2019-01-11 19:00 | NUR ---
HOME MEDS DAUGHTER LUZ BROUGHT IN PATIENTS HOME MEDS
--- NOTE | 2019-01-11 19:16 | NUR ---
LAB AT BESIDE LAB AT BEDSIDE TO OBTAIN BLOOD CULTURES
--- NOTE | 2019-01-11 19:30 | NUR ---
Opening Shift Note Assumed care of patient, awake and alert. No S/S of distress/SOB. Instructed on POC and to call for assist PRN, will continue to monitor for changes Q1hr and PRN.
--- NOTE | 2019-01-11 20:24 | NUR ---
Peripheral IV on right forearm, 22g successfully inserted using sterile technique, after 1 attempt.
--- NOTE | 2019-01-11 20:44 | NUR ---
SUBCLAVIAN LINE REMOVED AND SECURED WITH GAUZE AND TAPE. TIP SENT FOR CULTURE. PATIENT TOLERATED WELL.
[2019-01-11 22:00] VITALS: BP 111/57
[2019-01-12] MEDS: HYDROcodone-ACET 5/325MG TAB PO PRN ×4 (00:30→21:14)
[2019-01-12 05:27] VITALS: BP 108/81
[2019-01-12] MEDS: SODIUM CHLORIDE 0.9% 1,000 ML IV SCH ×3 (06:28→17:20)
[2019-01-12] MEDS: IPRATROPIUM BROM 0.5 MG/2.5ML INH SOL NEB SCH ×3 (06:32→18:58)
[2019-01-12] MEDS: ALBUTEROL SULF 2.5 MG/0.5ML(0.5%) NEB SOLN NEB SCH ×3 (06:32→18:58)
[2019-01-12] MEDS: Ensure Enlive Vanilla 8oz Bottle PO SCH ×2 (08:00→18:00)
--- NOTE | 2019-01-12 08:00 | NUR ---
Opening Shift Note Assumed care of patient, awake and alert. No S/S of distress/SOB or pain. Instructed on POC and to call for assist PRN, will continue to monitor for changes Q1hr and PRN.
--- NOTE | 2019-01-12 08:53 | NUR ---
PATIENT REFUSED ENSURE EDUCATED PATIENT ON IMPORTANCE OF MAINTAINING ADEQUATE NUTRITION. PT VERBALIZED UNDERSTANDING AND CONTINUES TO REFUSE ENSURE AT THIS TIME.
[2019-01-12 09:00] VITALS: BP 107/53
[2019-01-12] MEDS: HYDROXYCHLOROQUINE SULFATE 200 MG TAB PO SCH (10:57)
[2019-01-12] MEDS: ENOXAPARIN SOD 40 MG/0.4 ML SYRINGE SC SCH (10:57)
[2019-01-12] MEDS: FAMOTIDINE 20 MG TAB PO SCH (10:57)
[2019-01-12] MEDS: LEVOFLOXACIN 750MG 150 ML IV SCH (10:57)
[2019-01-12] MEDS: FENOFIBRATE 134 MG PO SCH (10:58)
[2019-01-12 13:00] VITALS: BP 148/71
[2019-01-12] MEDS: fentaNYL 50MCG/HR 50 MCG/HR PAT TD SCH (14:55)
--- NOTE | 2019-01-12 15:02 | NUR ---
REFUSING PHYSICAL THERAPY P.T. AT BEDSIDE. PATIENT CURRENTLY REFUSING PHYSICAL THERAPY. EDUCATED PATIENT OF IMPORTANCE OF BEING COMPLAINT WITH CARE. PT VERBALIZED UNDERSTANDING AND CONTINUES TO REFUSE PHYSICAL THERAPY
--- NOTE | 2019-01-12 15:30 | NUR ---
IV ACCESS LEAKING WHILE PERFORMING ROUNDS AND REPOSITIONING PATIENT, FOUND IV ACCESS LEAKING. EDUCATED PATIENT THAT NEW IV ACCESS WILL NEED TO BE OBTAINED. PATIENT CURRENTLY REFUSING TO HAVE IV ACCESS STARTED AT THIS TIME.
--- NOTE | 2019-01-12 15:36 | NUR ---
PT Patient refused to be OOB or do PT during visit with c/o pain. Addendum: 01/12/19 at 1537 by RAIAS SALINAS PTT Amended: Links added.
[2019-01-12] MEDS ORDERED: DAPTOMYCIN IV SCH ×2 (15:45→16:15)
--- NOTE | 2019-01-12 16:09 | NUR ---
MIDLINE RN MIDLINE RN AT BEDSIDE
--- NOTE | 2019-01-12 16:11 | NUR ---
Midline Placement Patient educated on need for midline placement. All risks and benefits explained and all questions and concerns addresses prior to procedure. 18g/8cm midline inserted via right brachial vein using Ultrasound. Sterile technique utilized. Blood return obtained from single lumen and flushed easily with NS using proper technique. Midline secured with saline lock; biodisc and occlusive dressing applied. Primary RN notified. Midline lot #[id number] x 1 attempt.
[2019-01-12] MEDS ORDERED: SODIUM CHL 0.9% IV SCH (16:15)
[2019-01-12] MEDS: FLUCONAZOLE 200MG/100ML 100 ML IV SCH (16:18)
[2019-01-12 17:00] VITALS: BP 118/59
--- NOTE | 2019-01-12 19:30 | NUR ---
Opening Shift Note Assumed care of patient, awake and alert. Very limited use of hands. C/o chronic pain in hands, back and all over. [place] will be given at 9 per pt request. No S/S of distress/SOB. Kidd in place draining clear pale yellow urine. Refusing stat lock says shes allergic to the tape in it. Instructed on POC and to call for assist PRN, will continue to monitor for changes Q1hr and PRN.
[2019-01-12 23:20] VITALS: BP 103/56
--- NOTE | 2019-01-13 | NUR ---
Assisted with numerous things patient requested. Spent over an hour with her helping her with all she wanted and needed Foam dressings placed to bilateral heels to prevent breakdown. Call light within reach
[2019-01-13] MEDS: SODIUM CHLORIDE 0.9% 1,000 ML IV SCH ×3 (04:28→13:20)
[2019-01-13] MEDS: HYDROcodone-ACET 5/325MG TAB PO PRN ×2 (04:30→16:59)
[2019-01-13 05:46] VITALS: BP 153/73
--- NOTE | 2019-01-13 05:48 | NUR ---
Assisted with bedpan, No BM just gas. Colace given per pt request. New gown and linens. Margy care given. Kidd leaked moderate amount of urine while on bedpan. Repositioned pt. Assisted with water and ADL's. Pillows placed under legs , back and heels. IV infusing per orders. Call light with patient, bed in lowest position
[2019-01-13] MEDS: DOCUSATE SOD 100 MG CAP PO PRN (05:58)
[2019-01-13] MEDS: ALBUTEROL SULF 2.5 MG/0.5ML(0.5%) NEB SOLN NEB SCH ×3 (06:59→19:07)
[2019-01-13] MEDS: IPRATROPIUM BROM 0.5 MG/2.5ML INH SOL NEB SCH ×3 (06:59→19:07)
[2019-01-13] MEDS: Ensure Enlive Vanilla 8oz Bottle PO SCH (08:00)
[2019-01-13] MEDS ORDERED: cefTRIAXone 1GM/50ML D5W 50 ML IV SCH (09:00)
[2019-01-13 09:12] VITALS: BP 113/64
--- NOTE | 2019-01-13 09:28 | NUR ---
FAXED HOME ABX ORDER TO [facility]
--- NOTE | 2019-01-13 09:31 | NUR ---
PT Patient refused physical therapy
[2019-01-13] MEDS: FAMOTIDINE 20 MG TAB PO SCH (09:43)
[2019-01-13] MEDS: FLUCONAZOLE 200MG/100ML 100 ML IV SCH ×3 (09:43→17:00)
[2019-01-13] MEDS: ENOXAPARIN SOD 40 MG/0.4 ML SYRINGE SC SCH (09:43)
[2019-01-13] MEDS: HYDROXYCHLOROQUINE SULFATE 200 MG TAB PO SCH (09:43)
[2019-01-13] MEDS: FENOFIBRATE 134 MG PO SCH (09:56)
--- NOTE | 2019-01-13 10:17 | NUR ---
Rowena at [facility] states pt has been on service with [facility] and will resume HH with [facility]
--- NOTE | 2019-01-13 11:29 | NUR ---
Faxed to [facility] not contracted with [facility]
--- NOTE | 2019-01-13 12:16 | NUR ---
PT Patient refused to be OOB or do PT during visit. Patient also refused PT yesterday. Addendum: 01/13/19 at 1217 by RAISA SALINAS PTT Amended: Links added.
[2019-01-13 12:30] VITALS: BP 144/67
--- NOTE | 2019-01-13 14:13 | NUR ---
Courtney called from [facility] stated they are working on order
[2019-01-13] MEDS ORDERED: DAPTOmycin 500 MG in SODIUM CHL 0.9% 50 ML IV SCH ×2 (14:15→15:00)
--- NOTE | 2019-01-13 14:41 | NUR ---
Patient up to chair with physical therapy.
--- NOTE | 2019-01-13 16:02 | NUR ---
[facility] ph # is [phone] [facility] ph # is [phone]. If pt d/c, these two agencies need to be notified
--- NOTE | 2019-01-13 16:04 | NUR ---
[facility] notified there are not d/c orders as of yet.
--- NOTE | 2019-01-13 16:18 | NUR ---
[facility] mri tech at bedside
[2019-01-13 17:00] VITALS: BP 147/86
--- NOTE | 2019-01-13 17:11 | NUR ---
I called [facility] [phone] and spoke with Leila to let her know patient is discharging home today-she said they will send a nurse out tomorrow to see the patient. I called [facility] [phone] and spoke with Courtney to let her know that patient is discharging home today-she said they will deliver IV ATB to patient's home between 8-10pm this evening, they will contact family to make them aware. I called nurse Brynn to let her know that everything is set on our end and that I was putting the contact information in my notes.
--- NOTE | 2019-01-13 19:30 | NUR ---
Patient discharged home with daughter. Tele box returned to Lyndsey GARRET. Kidd removed. Emptied 550 mls clear pale urine prior to going home. Sat her on commode and she urinated before discharging. Discharge paperwork and instructions given. Verbalized understanding. Midline to PATRICK intact and patent. Going home with midline for home antibiotics. All of belongings sent with patient. Alaina escorted down via patients own wheelchair. No distress noted.
== END 2019-01-13 19:30 | disposition home health service (06) | DRG 871 ==
LOC: EDBD 13:31 → ER 13:38 → TELE 13:39 → ICU WEST 20:02 → TELE-EAST 01-10 21:10
PROVIDERS: ADMIT Nurse Practitioner Acute Care; ATTEND Internal Medicine
PROC: 02HV33Z Insertion of Infusion Device into Superior Vena Cava, Percutaneous Approach (ICD-10-PCS; principal; 2019-01-07)
DX: A41.50 Gram-negative sepsis, unspecified (principal); R65.21 Severe sepsis with septic shock; J18.1 Lobar pneumonia, unspecified organism; I50.22 Chronic systolic (congestive) heart failure; E44.0 Moderate protein-calorie malnutrition; J44.0 Chronic obstructive pulmonary disease with (acute) lower respiratory infection; B49 Unspecified mycosis; N12 Tubulo-interstitial nephritis, not specified as acute or chronic; L89.159 Pressure ulcer of sacral region, unspecified stage; N20.0 Calculus of kidney; E87.6 Hypokalemia; D64.9 Anemia, unspecified; M06.9 Rheumatoid arthritis, unspecified; G89.4 Chronic pain syndrome; B96.20 Unspecified Escherichia coli [E. coli] as the cause of diseases classified elsewhere; F41.9 Anxiety disorder, unspecified; M19.90 Unspecified osteoarthritis, unspecified site; N18.9 Chronic kidney disease, unspecified; J98.4 Other disorders of lung; K82.8 Other specified diseases of gallbladder; Z74.01 Bed confinement status; Z79.891 Long term (current) use of opiate analgesic; Z79.899 Other long term (current) drug therapy; Z87.01 Personal history of pneumonia (recurrent); Z87.440 Personal history of urinary (tract) infections; Z87.442 Personal history of urinary calculi; Z88.5 Allergy status to narcotic agent; Z82.49 Family history of ischemic heart disease and other diseases of the circulatory system; Z80.9 Family history of malignant neoplasm, unspecified; Z82.61 Family history of arthritis
CPT/HCPCS: 36415; 51702; 71045; 74177; 80048; 80053; 80202; 81001; 83605; 83735; 85007; 85025; 85027; 87040; 87070; 87077; 87081; 87086; 87088; 87186; 87205; 93005; 93306; 94640; 96365; 99291; G0378; J0696; J1450; J1956; J2405; J2543; J3480; J7060

== ENCOUNTER 2021-06-02 22:38 | Inpatient (IN) | payer OTHER ==
[~2021-06-02] VITALS: Ht 152.4 cm; Wt 52.2 kg
[~2021-06-02 22:38] MED LIST changes: -ACET500C26 PO; +ASPI325T4 PO; +BACL10TA PO; -CHOL1CAP PO; +DIPH25CA66 PO; +FENT75DI TD; -FENT75DI2 TD; +FERR-20 PO; +FOLI1TAB6 PO; +FURO1TAB33 PO; -FURO20TA PO; +HYDR-531 PO; +LACT10SO3 PO; -LEVO25TA6 PO; +METH2.5T PO; +OMEG100078 PO; +OMEP20TA PO; +PAR20T PO; -POTA10TA75 PO; +PRE1T PO; +[UNRECOGNIZED DRUG - CODE] PO; +[UNRECOGNIZED DRUG - CODE] PO
[2021-06-02] MEDS ORDERED: KETOROLAC TROMETH 30 MG/ML 1ML VIAL IV ONE (23:30)
[2021-06-02] MEDS ORDERED: SODIUM CHLORIDE 0.9% 1,000 ML IV ONE (23:30)
[2021-06-03 01:27] LABS: Basophils # (auto) 0 10 ^3/uL (0-0.2); Basophils % (auto) 0.3 % (0.0-2.0); Eosinophils # (auto) 0 10 ^3/uL (0-0.8); Hematocrit 31.7 % (36.0-46.0); Hemoglobin 10.3 g/dL (12.2-16.2); Lymphocytes # (auto) 0.4 10 ^3/uL (0.4-5.4); Lymphocytes % (auto) 4.3 % (10.0-50.0); Mean Corpuscular Hemoglobin 26.5 pg (28.0-32.0); Mean Corpuscular Hgb Conc. 32.5 g/dL (32.0-36.0); Mean Corpuscular Volume 81.5 fL (80.0-100.0); Monocytes # (auto) 0.6 10 ^3/uL (0-1.3); Monocytes % (auto) 6.5 % (0.0-12.0); Neutrophils # (auto) 8.1 10 ^3/uL (1.6-8.6); Neutrophils % (auto) 88.9 % (37.0-80.0); Nucleated Red Blood Cells % 0.1 %; Red Blood Cells 3.89 10^6/uL (4.0-5.20); Red Cell Distribution Width 15.9 % (11.8-14.3); White Blood Cell 9.1 10^3/uL (4.4-10.8)
[2021-06-03 01:39] LABS: Calcium 7.9 mg/dL (8.5-10.1); Potassium 3.3 mmol/L (3.5-5.1)
[2021-06-03 01:41] LABS: Urine Bacteria FEW /hpf (None Seen); Urine Blood 2+ /uL (Negative); Urine Hyaline Cast FEW /lpf (0 - 2); Urine Mucus FEW (None Seen); Urine WBC 21 /hpf (0 - 5)
[2021-06-03 01:44] LABS: Albumin 2.3 g/dL (3.4-5.0); BUN/Creatinine Ratio 31.8; Bilirubin, Total 0.3 mg/dL (0.2-1.0); Total Protein 7.1 g/dL (6.4-8.2)
[2021-06-03] MEDS ORDERED: ACYCLOVIR 400 MG TAB PO ONE (01:45)
[2021-06-03] MEDS ORDERED: cefTRIAXone 1GM/50ML D5W 50 ML IV ONE (02:15)
[2021-06-03] MEDS ORDERED: D5W/SOD CHLO 0.9% 1,000 ML IV SCH (02:45)
[2021-06-03] MEDS ORDERED: DOCUSATE SOD 100 MG CAP PO PRN (02:45)
[2021-06-03] MEDS ORDERED: ONDANSETRON HCL 4 MG/2 ML VIAL IV PRN (02:45)
[2021-06-03] MEDS ORDERED: ACETAMINOPHEN 325 MG TAB PO PRN (02:45)
[2021-06-03] MEDS ORDERED: LORazepam 2MG/ML-1ML VIAL IV PRN (02:45)
[2021-06-03] MEDS ORDERED: POTASSIUM CHL 20MEQ/100ML 100 ML IV SCH ×2 (03:45→11:15)
[2021-06-03] MEDS ORDERED: MORPHINE SULFATE INJECTION 2 MG/ML SYRG IV PRN (04:00)
[2021-06-03] MEDS ORDERED: NITROGLYCERIN 0.4 MG SL TAB SL PRN (04:00)
[2021-06-03] MEDS: ACYCLOVIR 400 MG TAB PO SCH ×2 (06:00→16:02)
[2021-06-03 07:55] LABS: Basophils # (auto) 0.1 10 ^3/uL (0-0.2); Basophils % (auto) 0.6 % (0.0-2.0); Eosinophils # (auto) 0 10 ^3/uL (0-0.8); Hematocrit 28.5 % (36.0-46.0); Hemoglobin 9.3 g/dL (12.2-16.2); Lymphocytes # (auto) 0.5 10 ^3/uL (0.4-5.4); Lymphocytes % (auto) 5.9 % (10.0-50.0); Mean Corpuscular Hgb Conc. 32.7 g/dL (32.0-36.0); Mean Corpuscular Volume 82.6 fL (80.0-100.0); Monocytes # (auto) 0.6 10 ^3/uL (0-1.3); Monocytes % (auto) 6.1 % (0.0-12.0); Neutrophils # (auto) 8.2 10 ^3/uL (1.6-8.6); Neutrophils % (auto) 87.4 % (37.0-80.0); Nucleated Red Blood Cells % 0.1 %; Red Blood Cells 3.45 10^6/uL (4.0-5.20); Red Cell Distribution Width 16.1 % (11.8-14.3); White Blood Cell 9.4 10^3/uL (4.4-10.8)
[2021-06-03 08:17] LABS: Albumin 1.9 g/dL (3.4-5.0); Calcium 7.4 mg/dL (8.5-10.1); Potassium 3.4 mmol/L (3.5-5.1)
[2021-06-03 08:20] LABS: BUN/Creatinine Ratio 35.7; Bilirubin, Total 0.3 mg/dL (0.2-1.0); Total Protein 6.3 g/dL (6.4-8.2)
[2021-06-03] MEDS ORDERED: ZINC SULFATE 220mg CAP or TAB PO SCH (10:00)
[2021-06-03] MEDS ORDERED: FAMOTIDINE (10MG/ML) 2ML VL IV SCH (10:00)
[2021-06-03] MEDS ORDERED: ASPirin 81 mg TAB PO SCH (10:00)
[2021-06-03] MEDS ORDERED: MULTIPLE VITAMIN TAB PO SCH (10:00)
[2021-06-03] MEDS ORDERED: ASCORBIC ACID 500 MG TAB PO SCH (10:00)
[2021-06-03] MEDS ORDERED: FUROSEMIDE 20 MG/2 ML VIAL IV SCH (10:00)
[2021-06-03] MEDS: HYDROmorphone HCL 2 MG/ML VL IV PRN ×2 (10:35→16:01)
[2021-06-03] MEDS ORDERED: DICL1GEL72 EX (11:06)
[2021-06-03] MEDS ORDERED: POTA10TA51 PO (11:06)
[2021-06-03 12:47] VITALS: BP 115/53
[2021-06-03] MEDS ORDERED: ALBUAER3 IN (15:14)
[2021-06-03] MEDS ORDERED: LEVO500T31 PO (15:14)
[2021-06-03 16:57] VITALS: BP_SYST 115; BP_SYST 132; BP_DIAS 47; BP_DIAS 55
[2021-06-04] MEDS ORDERED: cefTRIAXone 1GM/50ML D5W 50 ML IV SCH (09:00)
== END 2021-06-03 17:53 | disposition hospice, home (50) | DRG 545 ==
LOC: EDBD 22:38 → EDSEX 22:38 → ER 22:40 → TELE 06-03 03:56 → TELE-WESTW 06-03 09:27
PROVIDERS: ADMIT Nurse Practitioner Family; ATTEND Nurse Practitioner Family
DX: M06.9 Rheumatoid arthritis, unspecified (principal); J18.9 Pneumonia, unspecified organism; N39.0 Urinary tract infection, site not specified; E87.1 Hypo-osmolality and hyponatremia; I13.0 Hypertensive heart and chronic kidney disease with heart failure and stage 1 through stage 4 chronic kidney disease, or unspecified chronic kidney disease; J96.10 Chronic respiratory failure, unspecified whether with hypoxia or hypercapnia; B02.9 Zoster without complications; E87.6 Hypokalemia; E88.09 Other disorders of plasma-protein metabolism, not elsewhere classified; I50.9 Heart failure, unspecified; J44.9 Chronic obstructive pulmonary disease, unspecified; Z20.822 Contact with and (suspected) exposure to COVID-19; M19.90 Unspecified osteoarthritis, unspecified site; N18.9 Chronic kidney disease, unspecified; F41.9 Anxiety disorder, unspecified; N20.0 Calculus of kidney; R91.1 Solitary pulmonary nodule; Z80.9 Family history of malignant neoplasm, unspecified; Z82.61 Family history of arthritis; Z87.440 Personal history of urinary (tract) infections; Z87.442 Personal history of urinary calculi; Z88.5 Allergy status to narcotic agent
CPT/HCPCS: 36415; 74176; 80053; 81001; 83605; 83690; 84443; 84484; 85025; 87086; 87426; 93005; 93306; 96361; 96365; G0378; J0696; J3480; J3490; J7042